=== PATIENT | male | born 1930 | race Caucasian/White ===

== ENCOUNTER 2017-01-23 02:08 | Emergency (ER) | payer MEDICARE ==
[2017-01-23 03:21] LABS: BASOPHILS 0.5 % (0.0-2.0); EOSINOPHILS 17.6 % (0.0-6.0); EOSINOPHILS# 1.5 X 10^3uL (0.0-0.4); HEMATOCRIT 40.8 % (42.0-54.0); HEMOGLOBIN 13.8 g/dL (14.0-18.0); LYMPHOCYTES 21.4 % (20.0-40.0); LYMPHOCYTES# 1.8 X 10^3uL (0.8-3.8); MEAN CELL VOLUME 91.2 fL (80.0-100.0); MEAN CORPUS. HGB CONCENTRATION 33.7 g/dL (32.0-36.0); MEAN CORPUSCULAR HEMOGLOBIN 30.7 pg (29.0-35.0); MEAN PLATELET VOLUME 8.1 fL (7.4-10.4); MONOCYTES 7.4 % (2.0-10.0); MONOCYTES# 0.6 X 10^3uL (0.2-1.0); NEUTROPHILS 53.1 % (54.0-75.0); NEUTROPHILS# 4.7 X 10^3uL (2.6-6.7); PLATELET COUNT 399 X 10^3uL (130-440); RED BLOOD COUNT 4.48 X 10^6uL (4.20-6.10); RED CELL DISTRIBUTION WIDTH 14.4 % (11.5-14.5); WHITE BLOOD COUNT 8.6 X 10^3uL (3.9-10.7)
[2017-01-23 03:27] LABS: ALBUMIN 4.8 g/dL (3.5-5.0); ALKALINE PHOSPHATASE 71 U/L (38-126); ALT 28 U/L (21-72); AST 19 U/L (17-59); BILIRUBIN, DIRECT 0.3 mg/dL (0.0-0.4); BILIRUBIN, TOTAL 0.8 mg/dL (0.2-1.3); BLOOD UREA NITROGEN 21 mg/dL (9-20); CALCIUM 10.6 mg/dL (8.4-10.2); CHLORIDE 108 mmol/L (98-107); CREATININE 1.7 mg/dL (0.7-1.3); GLUCOSE 115 mg/dL (70-100); LIPASE 35 U/L (23-300); POTASSIUM 4.2 mmol/L (3.5-5.1); SODIUM 144 mmol/L (137-145); TOTAL PROTEIN 7.7 g/dL (6.3-8.2)
[2017-01-23] MEDS ORDERED: HYDROmorphone HCL 1 MG/ML SYR ONE (03:32)
[2017-01-23] MEDS ORDERED: ONDANSETRON HCL 4 MG/2 ML VIAL ONE (03:32)
--- NOTE | 2017-01-23 04:32 | CT REPORT ---
HISTORY: Left lower quadrant pain with constipation. COMPARISON: CT from 10/24/2015. TECHNIQUE: This examination was performed using automated exposure control, adjustment of mA or kV according to patient size, and/or use of iterative reconstruction technique. Axial contiguous images of the abdome n and pelvis were obtained without oral or IV contrast, coronal reformat images also performed. FINDINGS: The visualized lung parenchyma and cardiac structures are unremarkable. The 5 mm calculus is noted at the right ureterovesicular junction resulting in mild right hydroureter onephrosis. There is no hepatic mass or intrahepatic biliary dilatation identified on limited noncontrast imaging . The gallbladder is unremarkable, there is no cholelithiasis or pericholecystic fluid. The spleen is unremarkable. There is no pancreatic mass or ductal dilatation. The adrenal glands are unremark able. There is a small hiatal hernia. There is colonic diverticulosis with no evidence of diverticulitis. F luid is noted throughout the ascending and transverse colon. The appendix is normal well-visualized. There is no free intraperitoneal fluid or gas. There is no mesenteric edema or inflammatory process. There is atherosclerosis of the abdominal aorta and branch vessels. A small fat containing left ing uinal hernia is seen. No pathologic adenopathy is identified. There is no bone lesion. IMPRESSION: 1. A 5 mm calculus in the right ureterovesicular junction resulting in mild right hydroureteronephro sis. 2. Colonic diverticulosis with no evidence of diverticulitis. 3. Fluid throughout the ascending and transverse colon. Final Electronic Signature: This report was electronically signed by Torie Ward MD on 01/23/2017 4:30 AM. yury /
--- NOTE | 2017-01-23 06:06 | ER PHYSICIAN DOCUMENTATION ---
Physician Documentation [facility] Name:Dru August Age:86 yrs Sex:Male :1930 Arrival Date:01/23/2017 Time:01:59 BedVT Private MD: Rc Porras Disposition: 01/23 18:46 Chart complete. tl1 Disposition: 01/23/17 03:54 Discharged to Home/Self Care. Impression: Abdominal Cramps, Ureterolithiasis - Renal Colic, Diarrhea. - Condition is Fair. - Discharge Instructions: CONSTIPATION (Adult), DIARRHEA, Unk Cause (Adult) Report Pendg, KIDNEY STONE w/ Colic. - Medical Reconciliation form form. - Follow up: Sae Matt DO; When: 2 - 3 days; Reason: Recheck today's complaints, Continuance of care. - Problem is new. - Symptoms have improved. - Notes: YOUR PAIN MAY BE RELATED TO THE CONSTIPATION AND/OR DIARRHEA. YOU HAVE A LOT OF EOSINOPHILS IN YOUR BLOOD. THIS HAS A VARIETY OF CAUSES AND THIS NEEDS TO BE SORTED OUT BY DR MATT. STOP USING THE MAGNESIUM CITRATE FOR TODAY. RETURN HERE FOR WORSENING PAIN, FEVER, BLOODY STOOLS, PERSISTENT VOMITING OR IF WORSE IN ANY WAY. HPI: 02:02 This 86 yrs old Male presents to ER via Walk In with complaints of tl1 Constipation and abdominal pain. 02:02 The patient presents with abdominal pain. Onset: The symptoms/episode began/occurred tl1 suddenly, 2 hour(s) ago. The symptoms do not radiate. Associated signs and symptoms: Pertinent positives: nausea, Pertinent negatives: blood in stools, diarrhea, dysuria, fever, hematuria, shortness of breath, vomiting. The symptoms are described as crampy. Modifying factors: The symptoms are alleviated by BMs. Severity of pain: At its worst the pain was moderate a 8 / 10 in the emergency department the pain has improved is a 6 / 10. The patient has experienced a previous episode, approximately 4 months ago. Historical: - Allergies: Aspirin; PENICILLINS; Lorazepam; - Home Meds: 1. fluticasone 2. Lantus Sub-Q 3. Metformin Oral 4. Singulair Oral - PMHx: Diabetes - IDDM; GERD; hyperlipidemia; - PSHx: eye; - Tetanus: < 10 years. - Ebola Screening: : Patient denies exposure to infectious person. Patient denies travel to an Ebola-affected area in the 21 days before illness onset. . - Immunization history: Unable to Obtain. - Social history: Smoking status: Patient states was never smoker of tobacco. Patient/guardian denies using alcohol. ROS: 18:31 Abdomen/GI: Positive for abdominal pain, diarrhea, constipation, abdominal cramps, tl1 Negative for nausea, vomiting, hematemesis, black/tarry stool, rectal bleeding. 18:31 : Negative for urinary symptoms, urinary frequency, hematuria, flank pain, burning with urination, foul smelling urine. 18:31 All other systems are negative. Exam: 02:20 Constitutional: This is a well developed, well nourished patient who is awake, alert, tl1 and in no acute distress. Head/Face: Normocephalic, atraumatic. Eyes: Pupils equal round and reactive to light, extra-ocular motions intact. Lids and lashes normal. Conjunctiva and sclera are non-icteric and not injected. Cornea within normal limits. Periorbital areas with no swelling, redness, or edema. ENT: Nares patent. No nasal discharge, no septal abnormalities noted. Tympanic membranes are normal and external auditory canals are clear. Oropharynx with no redness, swelling, or masses, exudates, or evidence of obstruction, uvula midline. Mucous membranes moist. 02:20 Neck: Trachea midline, no thyromegaly or masses palpated, and no cervical tl1 lymphadenopathy. Supple, full range of motion without nuchal rigidity, or vertebral point tenderness. No Meningismus. 02:20 Cardiovascular: Rate: normal, Rhythm: regular, Heart sounds: normal, Edema: is not appreciated, JVD: is not appreciated. 02:20 Respiratory: Respirations: normal, Breath sounds: are normal. 02:20 Abdomen/GI: Inspection: abdomen appears normal, Bowel sounds: active, Palpation: soft, moderate abdominal tenderness, in the right lower quadrant and left lower quadrant, Rectal exam: Prostate: enlarged, rectal tone normal, Stool: brown, guaiac negative, hemorrhoid(s), are not appreciated, mass, is not appreciated, fecal impaction, is not appreciated. 02:20 Back: CVA tenderness, that is mild, is noted on the right. 02:20 Musculoskeletal/extremity: Exam is negative for acute changes. 02:20 Skin: Exam negative for acute changes. 02:20 Neuro: Orientation: is normal, Mentation: is normal, Memory: is normal, Cranial nerves: grossly normal, Motor: moves all fours, Gait: appropriate for age. Vital Signs: 02:02 BP 165 / 97 RA Supine (auto/reg); Pulse 93 RA; Resp 20 S; Temp 97.7(O); Pulse Ox 92% ; em3 Weight 55.34 kg (R); Height 5 ft. 8 in. (172.72 cm) (R); Pain 6/10; 06:04 BP 126 / 70; Pulse 80; Resp 15; Pulse Ox 90% on R/A; Pain 2/10; lb 02:02 Body Mass Index 18.55 (55.34 kg, 172.72 cm) em3 MDM: 02:07 Patient medically screened. tl1 02:29 Patient medically screened. tl1 04:00 Differential diagnosis: appendicitis, bowel obstruction, diverticulitis, GI Bleed, tl1 sympomatic leaking abdominal aortic aneurysm, Mesenteric ischemia or infarction, non-specific abd pain, pancreatitis, Peptic Ulcer Disease, Prostatitis, Pyelonephritis, Ureterolithiasis, urinary tract infection. Data reviewed: vital signs, nurses notes, old medical records, lab test result(s), CBC, electrolytes, hepatic panel, urinalysis, radiologic studies, CT scan, and as a result, I will discharge patient. Counseling: I had a detailed discussion with the patient and/or guardian regarding: the historical points, exam findings, and any diagnostic results supporting the discharge/admit diagnosis, lab results, radiology results, the need for outpatient follow up, with the patient's primary care provider, to return to the emergency department if symptoms worsen or persist or if there are any questions or concerns that arise at home. Medication response: The patient's symptoms have improved, Dilaudid. Response to treatment: the patient's symptoms have resolved after treatment, the patient's pain is gone, and as a result, I will discharge patient. ED course: He initially had multiple episodes of diarrhea after taking mag citrate earlier in the evening. These eventually stopped. When he first arrived he had minimal pain, but he later developed RLQ/pelvic pain that radiated to his testicle. CT showed a 5 mm stone at the UVJ on the right with mild hydronephrosis. The radiologist queried whether this could be chronic. His pain was treated with 0.5 mg of dilaudid with eventual complete resolution of his pain. His diarrhea ceased and after resting for about 3 hours in the ED he preferred and felt well enough to go home. EMELY Julio made sure he was OK to drive prior to his d/c.. 01/23 03:28 Order name: BASIC METABOLIC PANEL; Complete Time: 03:45 EDMS 01/23 03:43 Interpretation: SODIUM 144; POTASSIUM 4.2; CHLORIDE 108; CARBON DIOXIDE 20; GLUCOSE tl1 115; BLOOD UREA NITROGEN 21; CREATININE 1.7; CALCIUM 10.6. 01/23 03:28 Order name: HEPATIC PANEL; Complete Time: 03:45 EDMS 01/23 03:44 Interpretation: Normal. tl1 01/23 03:28 Order name: LIPASE; Complete Time: 03:45 EDMS 01/23 03:44 Interpretation: Normal: LIPASE 35. tl1 01/23 03:30 Order name: CBC AUTO DIF, MDIF/RMOR IF IND; Complete Time: 03:45 EDMS 01/23 03:44 Interpretation: Normal: WHITE BLOOD COUNT 8.6; HEMOGLOBIN 13.8; HEMATOCRIT 40.8; tl1 NEUTROPHILS 53.1; EOSINOPHILS 17.6. 01/23 04:34 Order name: CAT SCAN; ABD/[place] [id number]; Complete Time: 04:54 EDMS 01/23 02:25 Order name: NPO; Complete Time: 03:19 tl1 Dispensed Medications: 02:45 Drug: NS 0.9% 1000 ml; Route: IV; Rate: bolus; Site: left antecubital; lb 06:03 Follow up: IV Status: Infusion discontinued; IV Intake: 600ml lb 03:24 Drug: Zofran 4 mg; Route: IVP; Infused Over: 2 mins; Site: left antecubital; lb 04:26 Follow up: Response: Nausea is decreased lb 03:24 Drug: Dilaudid 0.5 mg; Route: IVP; Site: left antecubital; lb 04:26 Follow up: Response: Pain is decreased lb 06:04 Not Given (Duplicate Order): Zofran 4 mg IVP once over 2 mins lb Signatures: Rc Santos MD MD tl1 Nori Barraza lb
--- NOTE | 2017-01-23 06:06 | ER NURSING DOCUMENTATION ---
Nurse's Notes [facility] Name:Dru August Age:86 yrs Sex:Male :1930 Arrival Date:01/23/2017 Time:01:59 BedSC Private MD: Diagnosis:Abdominal Cramps;Ureterolithiasis - Renal Colic;Diarrhea Presentation: 01/23 02:06 Presenting complaint: Patient states: c/o stomach cramping, small bm's x 1 day. lb Transition of care: Home. Notified ED Physician of Dr. Santos notified. 02:06 Acuity: KATT 4 lb 02:06 Method Of Arrival: Walk In Triage Assessment: 02:10 General: Appears distressed, Behavior is appropriate for age. Pain: Complains of pain lb in abdomen Pain does not radiate. Pain currently is 6 out of 10 on a pain scale. Historical: - Allergies: Aspirin; PENICILLINS; Lorazepam; - Home Meds: 1. fluticasone 2. Lantus Sub-Q 3. Metformin Oral 4. Singulair Oral - PMHx: Diabetes - IDDM; GERD; hyperlipidemia; - PSHx: eye; - Tetanus: < 10 years. - Ebola Screening: : Patient denies exposure to infectious person. Patient denies travel to an Ebola-affected area in the 21 days before illness onset. . - Immunization history: Unable to Obtain. - Social history: Smoking status: Patient states was never smoker of tobacco. Patient/guardian denies using alcohol. Screenin:10 Infectious Disease Risk None. Abuse screen: Denies threats or abuse. Denies injuries lb from another. Nutritional screening: No deficits noted. Assessment: 02:10 See Triage Assessment done by same RN. lb Vital Signs: 02:02 BP 165 / 97 RA Supine (auto/reg); Pulse 93 RA; Resp 20 S; Temp 97.7(O); Pulse Ox 92% ; em3 Weight 55.34 kg (R); Height 5 ft. 8 in. (172.72 cm) (R); Pain 6/10; 06:04 BP 126 / 70; Pulse 80; Resp 15; Pulse Ox 90% on R/A; Pain 2/10; lb 02:02 Body Mass Index 18.55 (55.34 kg, 172.72 cm) em3 ED Course: :59 Patient arrived in ED. em3 02:05 Nori Barraza is Primary Nurse. lb 02:07 Triage completed. lb 02:11 Valuables Remains with patient Patient has correct armband on for positive lb identification. Placed in gown. 02:23 Rc Santos MD is Attending Physician. tl1 02:44 Labs drawn. By management trainer Sent per order to lab. Inserted saline lock: 20 gauge in left em3 antecubital area and blood collected. 03:[address] pm1 03:52 Sae Matt DO is Referral Physician. tl1 Administered Medications: 02:45 Drug: NS 0.9% 1000 ml; Route: IV; Rate: bolus; Site: left antecubital; lb 06:03 Follow up: IV Status: Infusion discontinued; IV Intake: 600ml lb 03:24 Drug: Zofran 4 mg; Route: IVP; Infused Over: 2 mins; Site: left antecubital; lb 04:26 Follow up: Response: Nausea is decreased lb 03:24 Drug: Dilaudid 0.5 mg; Route: IVP; Site: left antecubital; lb 04:26 Follow up: Response: Pain is decreased lb 06:04 Not Given (Duplicate Order): Zofran 4 mg IVP once over 2 mins lb Intake: 06:03 IV: 600ml; Total: 600ml. lb Outcome: 03:54 Discharge ordered by . tl1 06:04 Discharged to home ambulatory. lb 06:04 Condition: stable 06:04 Discharge Assessment: Patient awake, alert and oriented x 3. No cognitive and/or functional deficits noted. Patient verbalized understanding of disposition instructions. 06:04 Instructed on discharge instructions, follow up and referral plans. 06:04 IV D/Den 06:04 Patient left the ED. lb 01/24 10:38 Discharge F/U Call: Unable to reach: no answer amando Signatures: Ale Duran, RN RN Aurelia Araujo pm1 Alphonse Rico em3 Rc Santos MD MD tl1 Nori Barraza lb
== END 2017-01-23 06:06 | disposition home or self-care (01) ==
LOC: ER 02:08
DX: N20.1 Calculus of ureter (principal); N23 Unspecified renal colic; R10.31 Right lower quadrant pain; R10.32 Left lower quadrant pain; R19.7 Diarrhea, unspecified; K59.00 Constipation, unspecified; E11.9 Type 2 diabetes mellitus without complications; Z79.4 Long term (current) use of insulin; Z79.899 Other long term (current) drug therapy
CPT/HCPCS: 74176; 80048; 80076; 83690; 85025; 96361; 96374; 96375; 99284; J1170; J2405

== ENCOUNTER 2017-01-28 13:12 | Emergency (ER) | payer MEDICARE ==
[2017-01-28] MEDS ORDERED: KETOROLAC TROMETHAMINE 30 MG/ML VIAL ONE (13:38)
[2017-01-28] MEDS ORDERED: HYDROmorphone HCL 1 MG/ML SYR ONE (13:38)
[2017-01-28] MEDS ORDERED: ONDANSETRON HCL 4 MG/2 ML VIAL ONE (13:39)
[2017-01-28 14:01] LABS: BASOPHILS 0.3 % (0.0-2.0); EOSINOPHILS 10.1 % (0.0-6.0); HEMATOCRIT 35.2 % (42.0-54.0); HEMOGLOBIN 11.9 g/dL (14.0-18.0); LYMPHOCYTES 15.8 % (20.0-40.0); LYMPHOCYTES# 1.6 X 10^3uL (0.8-3.8); MEAN CELL VOLUME 91.1 fL (80.0-100.0); MEAN CORPUS. HGB CONCENTRATION 33.9 g/dL (32.0-36.0); MEAN CORPUSCULAR HEMOGLOBIN 30.9 pg (29.0-35.0); MEAN PLATELET VOLUME 7.9 fL (7.4-10.4); MONOCYTES 7.3 % (2.0-10.0); MONOCYTES# 0.7 X 10^3uL (0.2-1.0); NEUTROPHILS 66.5 % (54.0-75.0); NEUTROPHILS# 6.6 X 10^3uL (2.6-6.7); PLATELET COUNT 390 X 10^3uL (130-440); RED BLOOD COUNT 3.86 X 10^6uL (4.20-6.10); RED CELL DISTRIBUTION WIDTH 14.1 % (11.5-14.5); WHITE BLOOD COUNT 9.9 X 10^3uL (3.9-10.7)
[2017-01-28 14:07] LABS: A/G RATIO 1.5; ALBUMIN 4.1 g/dL (3.5-5.0); ALKALINE PHOSPHATASE 66 U/L (38-126); ALT 33 U/L (21-72); AST 17 U/L (17-59); BILIRUBIN, TOTAL 0.8 mg/dL (0.2-1.3); BLOOD UREA NITROGEN 16 mg/dL (9-20); CALCIUM 9.3 mg/dL (8.4-10.2); CHLORIDE 106 mmol/L (98-107); CREATININE 1.6 mg/dL (0.7-1.3); MAGNESIUM 2.2 mg/dL (1.6-2.3); POTASSIUM 4.2 mmol/L (3.5-5.1); SODIUM 142 mmol/L (137-145); TOTAL PROTEIN 6.8 g/dL (6.3-8.2)
[2017-01-28 14:12] LABS: GLUCOSE 220 mg/dL (70-100)
--- NOTE | 2017-01-28 14:20 | CT REPORT ---
HISTORY: Bilateral flank pain, history of stones COMPARISON: 01/23/2017 TECHNIQUE: This examination was performed using automated exposure control, adjustment of mA or kV according to patient size, and/or use of iterative reconstruction technique. Axial contiguous images of the abdome n and pelvis were obtained without oral or IV contrast, coronal reformat images also performed. FINDINGS: Previously noted hydronephrosis and hydroureter on the right has resolved. Right UVJ stone is no long er evident. The bladder appears normal. Left kidney appears normal. No stone or hydronephrosis. The left ureter is unremarkable. The lung bases are clear. The visualized portions of the unenhanced liver, spleen, gallbladder, and a drenal glands appear normal. There is moderate fatty infiltration throughout the pancreas. The aorta is normal in size. There is a retroaortic left renal vein. There is no adenopathy, free flu id, or free air. Sigmoid diverticulosis is again evident. No evidence for acute diverticulitis, or bowel obstruction. Small bowel is unremarkable. The appendix is normal. The amount of fluid noted throughout the bowel o n the prior study is less evident. There is no hernia. There is normal alignment to the lumbar spine. IMPRESSION: Previously noted right UVJ stone is no longer evident. Obstructive changes in the right kidney and ur eter have resolved. No new stones or hydronephrosis on either side. The amount of fluid noted throughout the bowel on the prior study is less evident. There remains sigm oid diverticula without evidence of acute diverticulitis. The remainder of the study is unremarkable given the lack of IV and oral contrast. Final Electronic Signature: This report was electronically signed by Logan Doherty MD on 01/28/2017 2 :17 PM. falguni /
--- NOTE | 2017-01-28 16:38 | ER NURSING DOCUMENTATION ---
Nurse's Notes [facility] Name:Dru August Age:86 yrs Sex:Male :1930 Arrival Date:01/28/2017 Time:13:12 Bed4 Private MD:Sae Matt Diagnosis:Pelvic Pain Presentation: 01/28 13:20 Acuity: KATT 3 rs 13:20 Presenting complaint: Patient states: "Kidney stone" pain started this morning. Was in rs this ER recently for the same. Denies f/c. No n/v. 13:20 Method Of Arrival: Private Vehicle rs 13:39 Transition of care: [facility]. rs Triage Assessment: 13:20 General: Appears uncomfortable, well developed, well nourished, well groomed, Behavior rs is cooperative, pleasant. Pain: Complains of pain in Points to RLQ. / suprapubic area. Pain currently is 8 out of 10 on a pain scale. Neuro: Level of Consciousness is awake, alert, Oriented to person, place, time, event. Cardiovascular: No deficits noted. Capillary refill < 3 seconds Pulses are 3+ in left radial artery. Respiratory: No deficits noted. Respiratory effort is even, unlabored, Respiratory pattern is regular, symmetrical. GI: Abdomen is flat, non- distended Bowel sounds present X 4 quads. Abd is soft and non tender X 4 quads. Derm: Skin is pink, warm & dry. Historical: - Home Meds: 1. fluticasone 2. Lantus Sub-Q 3. Metformin Oral 4. Singulair Oral - PMHx: DIABETES - IDDM; GERD; hyperlipidemia; Abdominal Cramps (January 23, 2017); Ureterolithiasis - Renal Colic (January 23, 2017); Diarrhea (January 23, 2017); - PSHx: eye; - Tetanus: unknown. - Ebola Screening: : Patient negative for fever greater than or equal to 101.5 degrees Fahrenheit, and additional compatible Ebola Virus Disease symptoms. Patient denies exposure to infectious person. Patient denies travel to an Ebola-affected area in the 21 days before illness onset. No symptoms or risks identified at this time. . - Immunization history: Unable to Obtain. - Social history: Smoking status: Patient states was never smoker of tobacco. Screenin:25 Infectious Disease Risk None. Abuse screen: Denies threats or abuse. Nutritional rs screening: No deficits noted. Vital Signs: 13:34 BP 149 / 89 (auto/); rs 13:34 Pulse Ox 90% ; rs ED Course: 13:13 Patient arrived in ED. lm3 13:13 Sae Matt DO is Private Physician. lm3 13:20 Rc Santos MD is Attending Physician. tl1 13:20 Notified ED Physician of patient's arrival and chief complaint. Dr. Santos notified. Arm rs band placed on Bed in low position Call Light in Reach HOB Elevated Side rails up x1. 13:25 Door closed. Noise minimized. Lights dimmed. Verbal reassurance given. rs 13:30 Inserted peripheral IV: 20 gauge in left forearm and blood collected. rs 13:39 Alice Kaminski RN is Primary Nurse. rs 13:43 Triage completed. rs 13:[address] pm1 14:06 Patient moved back from [address]. pm1 15:42 Sae Matt DO is Referral Physician. tl1 Administered Medications: 13:30 Drug: Zofran 4 mg; Route: IVP; Rate: 2 mg/min; Infused Over: 2 mins; Site: left forearm;rs 13:33 Drug: Toradol 15 mg; Route: IVP; Rate: 7.5 mg/min; Infused Over: 2 mins; Site: left rs forearm; 13:35 Drug: Dilaudid 0.5 mg; Route: IVP; Rate: 0.25 mg/min; Infused Over: 2 mins; Site: left rs forearm; Outcome: 15:45 Discharge ordered by . tl1 16:38 Patient left the ED. lpr Signatures: Alice Kaminski RN RN rs Judith Encarnacion RN RN lpr McBride, Philisha pm1 Rc Santos MD MD tl1 Mitzi Pulido lm3
--- NOTE | 2017-01-28 16:38 | ER PHYSICIAN DOCUMENTATION ---
Physician Documentation [facility] Name:Dru August Age:86 yrs Sex:Male :1930 Arrival Date:01/28/2017 Time:13:12 Bed4 Private MD:Sae Matt ED, Tom Disposition: 01/28 17:00 Chart complete. tl1 Disposition: 01/28/17 15:45 Discharged to [facility]. Impression: Pelvic Pain. - Condition is Good. - Discharge Instructions: PELVIC PAIN, Unknown Cause. - Medical Reconciliation form form. - Follow up: Sae Matt DO; When: 4- 6 days; Reason: Recheck today's complaints, Continuance of care. - Problem is new. - Symptoms are resolved. HPI: 13:21 This 86 yrs old Male presents to ER with complaints of PELVIC PAIN; Possible tl1 Kidney Stone. 13:25 The patient presents with Pelvic pain. Onset: The symptom(s)/episode began/occurred tl1 suddenly, 3 hour(s) ago. Modifying factors: The symptoms are alleviated by nothing, the symptoms are aggravated by nothing. Associated signs and symptoms: Pertinent positives: nausea, Pertinent negatives: constipation, diarrhea, vomiting. Severity of symptoms: At their worst the symptoms were severe, in the emergency department the symptoms have improved. The patient has experienced similar episodes in the past. The patient has been recently seen at the [facility] Emergency Department, last week. Initially he had difficulty describing his pain. After his pain was treated and he was feeling better, he described the pain as similar to that which he has had many times in the past and which has been ascribed to his PMR, somehow in the past. He reported that this has always been brief and self limited.. Historical: - Home Meds: 1. fluticasone 2. Lantus Sub-Q 3. Metformin Oral 4. Singulair Oral - PMHx: DIABETES - IDDM; GERD; hyperlipidemia; Abdominal Cramps (January 23, 2017); Ureterolithiasis - Renal Colic (January 23, 2017); Diarrhea (January 23, 2017); - PSHx: eye; - Tetanus: unknown. - Ebola Screening: : Patient negative for fever greater than or equal to 101.5 degrees Fahrenheit, and additional compatible Ebola Virus Disease symptoms. Patient denies exposure to infectious person. Patient denies travel to an Ebola-affected area in the 21 days before illness onset. No symptoms or risks identified at this time. . - Immunization history: Unable to Obtain. - Social history: Smoking status: Patient states was never smoker of tobacco. ROS: 13:25 Constitutional: Positive for malaise, Negative for chills, fever, weight loss. tl1 13:25 Cardiovascular: Negative for chest pain. 13:25 Respiratory: Negative for cough, shortness of breath, wheezing. 13:25 Abdomen/GI: Positive for abdominal pain, nausea, abdominal cramps, of the suprapubic area, Negative for vomiting, diarrhea, constipation. 13:25 : Negative for urinary symptoms, difficulty urinating. 13:25 Neuro: Negative for dizziness, headache. Exam: 13:25 Constitutional: The patient appears alert, awake, well developed, well groomed, well tl1 nourished, frail, in obvious distress, moderately distressed, in obvious pain, restless, uncomfortable. 13:25 Head/face: Exam is negative for acute changes. 13:25 Eyes: Extraocular movements: intact throughout, Sclera: icterus, is not appreciated. 13:25 Neck: ROM/movement: is normal. 13:25 Cardiovascular: Rate: normal, Rhythm: regular, Heart sounds: normal, Edema: is not appreciated, JVD: is not appreciated. 13:25 Respiratory: Respirations: normal, Breath sounds: are normal. 13:25 Abdomen/GI: Inspection: abdomen appears normal, Bowel sounds: active, Palpation: soft, mild abdominal tenderness, in the right lower quadrant and left lower quadrant. 13:25 : CVA tenderness, is absent, Bladder: distension, is not appreciated, tenderness, that is mild. 13:25 Skin: Exam negative for acute changes. 13:25 Neuro: Exam negative for acute changes. Vital Signs: 13:34 BP 149 / 89 (auto/); rs 13:34 Pulse Ox 90% ; rs MDM: 13:20 Patient medically screened. tl1 16:00 Differential diagnosis: nonspecific abdominal pain, appendicitis, UTI, urinary tl1 retention, prostatitis, ischemic bowel, obstruction, meckle's diverticulum, diverticulitis, mesenteric adenitis, epiploic appendagitis. AAA. Differential diagnosis: renal colic. Data reviewed: vital signs, nurses notes, old medical records, lab test result(s), radiologic studies, and as a result, I will admit patient. Counseling: I had a detailed discussion with the patient and/or guardian regarding: the historical points, exam findings, and any diagnostic results supporting the discharge/admit diagnosis, lab results, radiology results, the need for outpatient follow up, to return to the emergency department if symptoms worsen or persist or if there are any questions or concerns that arise at home. Response to treatment: the patient's symptoms have resolved after treatment, the patient's pain is gone, the patient's condition has returned to base line, the patient is now symptom free, Repeat agdominal exam showed active bowel sounds and was completely non tender.. 01/28 14:10 Order name: CBC AUTO DIF, MDIF/RMOR IF IND; Complete Time: 15:38 EDMS 01/28 15:36 Interpretation: WHITE BLOOD COUNT 9.9; HEMOGLOBIN 11.9; HEMATOCRIT 35.2; PLATELET COUNT tl1 390; EOSINOPHILS 10.1. 01/28 14:13 Order name: COMPREHENSIVE METABOLIC PANEL; Complete Time: 15:38 EDMS 01/28 15:37 Interpretation: Normal Except: GLUCOSE 220; CREATININE 1.6. tl1 01/28 14:13 Order name: MAGNESIUM; Complete Time: 15:38 EDMS 01/28 15:37 Interpretation: Normal: MAGNESIUM 2.2. tl1 01/28 14:07 Order name: CAT SCAN; ABD/[place] [id number]; Complete Time: 07:26 EDMS 01/29 07:26 Interpretation: NAD. SEE REPORT. tl1 01/28 14:07 Order name: CAT SCAN ABD/[place] [id number]; Complete Time: 15:38 EDMS 01/28 14:22 Order name: CAT SCAN; ABD/[place] [id number]; Complete Time: 15:38 EDMS Dispensed Medications: 13:30 Drug: Zofran 4 mg; Route: IVP; Rate: 2 mg/min; Infused Over: 2 mins; Site: left forearm;rs 13:33 Drug: Toradol 15 mg; Route: IVP; Rate: 7.5 mg/min; Infused Over: 2 mins; Site: left rs forearm; 13:35 Drug: Dilaudid 0.5 mg; Route: IVP; Rate: 0.25 mg/min; Infused Over: 2 mins; Site: left rs forearm; Signatures: Alice Kaminski RN RN rs Judith Encarnacion RN RN Rc Jones MD MD tl1
== END 2017-01-28 16:38 ==
LOC: ER 13:12
DX: R10.31 Right lower quadrant pain (principal); R10.32 Left lower quadrant pain; R11.0 Nausea; R53.81 Other malaise; Z87.442 Personal history of urinary calculi; M35.3 Polymyalgia rheumatica; E11.65 Type 2 diabetes mellitus with hyperglycemia; Z79.899 Other long term (current) drug therapy; Z79.4 Long term (current) use of insulin
CPT/HCPCS: 74176; 80053; 83735; 85025; 96374; 96375; 99284; J1170; J1885; J2405

== ENCOUNTER 2017-01-30 09:49 | Observation (INO) | payer MEDICARE ==
--- NOTE | 2017-01-30 10:09 | CT REPORT ---
HISTORY: Stroke alert. COMPARISON: None. TECHNIQUE: Unenhanced axial CT of the head. Dose reduction technique was utilized. FINDINGS: The examination is limited due to motion artifact. The ventricles, sulci, and cisterns are symmetric, but mildly prominent compatible with age related a trophy. There is mild low attenuation in the periventricular white matter which is nonspecific, but likely due to small vessel ischemic disease. The hood-white differentiation appears preserved with no evidence of acute infarct. There is no evidence of acute intercranial hemorrhage. There is a punctat e basal ganglia calcification on the left side. There is no mass lesion or midline shift. The bony calvaria appears intact. There are bilateral cataract replacements. There is opacification of the l eft sphenoid sinus. Otherwise, the visualized paranasal sinuses and mastoid air cells are clear. Ther e is moderate atherosclerosis involving the cavernous internal carotid and mild atherosclerosis invol ving the distal vertebral arteries. IMPRESSION: 1. No acute intracranial abnormality. 2. Mild age-related atrophy. 3. Mild periventricular white matter small vessel ischemic disease. 4. Left sphenoid sinusitis. Critical results were communicated to SD DIAZ MD at 01/30/2017 10:05 AM. Final Electronic Signature: This report was electronically signed by Logan Mora MD on 01/30/2017 1 0:06 AM. pavan /
[2017-01-30 10:11] LABS: BASOPHILS 0.5 % (0.0-2.0); EOSINOPHILS 12.2 % (0.0-6.0); EOSINOPHILS# 0.9 X 10^3uL (0.0-0.4); HEMATOCRIT 36.2 % (42.0-54.0); HEMOGLOBIN 12.1 g/dL (14.0-18.0); LYMPHOCYTES 21.3 % (20.0-40.0); LYMPHOCYTES# 1.6 X 10^3uL (0.8-3.8); MEAN CELL VOLUME 91.4 fL (80.0-100.0); MEAN CORPUS. HGB CONCENTRATION 33.3 g/dL (32.0-36.0); MEAN CORPUSCULAR HEMOGLOBIN 30.4 pg (29.0-35.0); MEAN PLATELET VOLUME 7.7 fL (7.4-10.4); MONOCYTES 10.5 % (2.0-10.0); MONOCYTES# 0.8 X 10^3uL (0.2-1.0); NEUTROPHILS 55.5 % (54.0-75.0); NEUTROPHILS# 4.3 X 10^3uL (2.6-6.7); PLATELET COUNT 361 X 10^3uL (130-440); RED BLOOD COUNT 3.97 X 10^6uL (4.20-6.10); WHITE BLOOD COUNT 7.6 X 10^3uL (3.9-10.7)
[2017-01-30 10:21] LABS: BLOOD UREA NITROGEN 14 mg/dL (9-20); CALCIUM 9.2 mg/dL (8.4-10.2); CHLORIDE 104 mmol/L (98-107); CREATININE 1.9 mg/dL (0.7-1.3); GLUCOSE 134 mg/dL (70-100); POTASSIUM 4.2 mmol/L (3.5-5.1); SODIUM 140 mmol/L (137-145)
[2017-01-30] MEDS ORDERED: NALOXONE HCL 0.4 MG/ML VIAL ONE ×2 (10:21→10:35)
[2017-01-30 10:23] LABS: INR 1.2
[2017-01-30] MEDS ORDERED: HOME MEDICATION LIST NEEDED 1 EA EACH MC ONE (12:05)
[2017-01-30] MEDS ORDERED: MAG-AL PLUS XS SUSP 30 ML UDC PO PRN (12:05)
[2017-01-30] MEDS ORDERED: POLYETHYLENE GLYCOL 3350 17 GM POWD.PACK PO PRN (12:05)
[2017-01-30] MEDS ORDERED: DEXTROSE 50% WATER 25 GM/50 ML SYR IV PRN (12:31)
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
[2017-01-30] MEDS: ACETAMINOPHEN 325 MG TABLET PO PRN (14:20)
[2017-01-30 16:37] LABS: URINE APPEARANCE CLEAR; URINE COLOR YELLOW; URINE GLUCOSE NORMAL (NEGATIVE); URINE LEUKOCYTE ESTERASE NEGATIVE (NEGATIVE); URINE NITRITE NEGATIVE (NEGATIVE); URINE PH 7.5 (5-7); URINE PROTEIN NEGATIVE (NEG - TRACE)
[2017-01-30 16:38] LABS: URINE BILIRUBIN NEGATIVE (NEGATIVE); URINE BLOOD NEGATIVE (NEGATIVE); URINE KETONE 10mg/dL (1+) (NEGATIVE); URINE UROBILINOGEN NORMAL (NEG-1mg/dL)
[2017-01-30] MEDS: INSULIN LISPRO 100 UNIT/ML ML SUBCUT SCH ×2 (18:08→20:55)
[2017-01-30] MEDS: ALBUTEROL HFA 1 INH INHALER INHALATION PRN (18:59)
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
[2017-01-31] MEDS: LACTATED RINGERS 1,000 ML IV SCH ×2 (02:57→16:26)
[2017-01-31] MEDS: ALBUTEROL HFA 1 INH INHALER INHALATION PRN (03:55)
[2017-01-31] MEDS: ACETAMINOPHEN 325 MG TABLET PO PRN (05:32)
[2017-01-31] MEDS: INSULIN LISPRO 100 UNIT/ML ML SUBCUT SCH ×4 (06:28→21:16)
[2017-01-31 06:42] LABS: A/G RATIO 1.3; ALBUMIN 3.8 g/dL (3.5-5.0); ALKALINE PHOSPHATASE 76 U/L (38-126); ALT 33 U/L (21-72); AST 22 U/L (17-59); BILIRUBIN, TOTAL 0.8 mg/dL (0.2-1.3); BLOOD UREA NITROGEN 12 mg/dL (9-20); CALCIUM 9.1 mg/dL (8.4-10.2); CHLORIDE 101 mmol/L (98-107); CREATININE 1.7 mg/dL (0.7-1.3); GLUCOSE 81 mg/dL (70-100); POTASSIUM 4.3 mmol/L (3.5-5.1); SODIUM 136 mmol/L (137-145); TOTAL PROTEIN 6.7 g/dL (6.3-8.2)
[2017-01-31] MEDS ORDERED: FEXOFENADINE HCL 180 MG TABLET PO PRN (07:59)
[2017-01-31] MEDS ORDERED: MAGNESIUM HYDROXIDE 30 ML UDC PO PRN (07:59)
[2017-01-31] MEDS ORDERED: ACETAMINOPHEN 325 MG TABLET PO PRN (07:59)
[2017-01-31] MEDS ORDERED: ALBUTEROL HFA 1 INH INHALER INHALATION PRN (07:59)
[2017-01-31] MEDS ORDERED: FLUTICASONE NASAL 120 SPRAY BTL NASAL PRN (07:59)
[2017-01-31] MEDS ORDERED: clonazePAM 0.5 MG TABLET PO PRN (07:59)
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
[2017-01-31] MEDS ORDERED: INHALER, ASSIST DEVICES 1 PKT EACH ONE (08:30)
[2017-01-31] MEDS: FINASTERIDE 5 MG TABLET PO SCH (08:54)
[2017-01-31] MEDS ORDERED: FLUTICASONE HFA 44 MCG 120 INH INH INHALATION SCH (09:00)
[2017-01-31] MEDS: predniSONE 5 MG TABLET PO SCH (09:00)
[2017-01-31] MEDS ORDERED: metFORMIN 500 MG TABLET PO SCH (09:00)
[2017-01-31] MEDS: BUDESONIDE 0.5 MG/2 ML NEB INHALATION SCH ×2 (09:16→20:43)
[2017-01-31] MEDS ORDERED: O2 HUMIDIFIER 650 ML BOTTLE INHALATION ONE (09:28)
[2017-01-31] MEDS: IPRATROPIUM/ALBUTEROL 0.5/3 MG 3 ML AMPUL.NEB INHALATION PRN (13:53)
[2017-01-31] MEDS ORDERED: SIMVASTATIN 20 MG TABLET PO SCH (21:00)
[2017-01-31] MEDS ORDERED: TAMSULOSIN HCL 0.4 MG CAPSULE PO SCH (21:00)
[2017-01-31] MEDS ORDERED: INSULIN GLARGINE,HUM.REC.ANLOG 100 UNITS/ML ML SUBCUT SCH (21:00)
[2017-01-31] MEDS ORDERED: MONTELUKAST SODIUM 10 MG TABLET PO SCH (21:00)
[2017-02-01] MEDS: LACTATED RINGERS 1,000 ML IV SCH (04:00)
[2017-02-01 06:29] VITALS: BP 156/91; PULSE 94; RESP 16; TEMP 97.8
[2017-02-01] MEDS ORDERED: FLUOCINONIDE TOPICAL PRN (07:31)
[2017-02-01] MEDS ORDERED: EMOLLIENT BASE TOPICAL PRN (07:31)
[2017-02-01] MEDS ORDERED: ALBUTEROL 0.083% 2.5 MG/3 ML VIAL.NEB INHALATION PRN (07:31)
[2017-02-01] MEDS ORDERED: [UNRECOGNIZED DRUG - OTHER] TOPICAL PRN (07:31)
[2017-02-01] MEDS ORDERED: NON-FORMULARY MEDICATION (Ketotifen Fumarate [Zaditor] 1 DROP) EACHEYE PRN (07:31)
[2017-02-01] MEDS ORDERED: IPRATROPIUM BROMIDE 0.5 MG/2.5 ML NEB NEB PRN (07:31)
[2017-02-01] MEDS: INSULIN LISPRO 100 UNIT/ML ML SUBCUT SCH (07:53)
[2017-02-01 07:57] VITALS: O2SAT 93
[2017-02-01] MEDS: FINASTERIDE 5 MG TABLET PO SCH (08:11)
[2017-02-01] MEDS: predniSONE 5 MG TABLET PO SCH (08:11)
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
[2017-02-01] MEDS: IPRATROPIUM/ALBUTEROL 0.5/3 MG 3 ML AMPUL.NEB INHALATION PRN (08:24)
[2017-02-01] MEDS: BUDESONIDE 0.5 MG/2 ML NEB INHALATION SCH (08:26)
[2017-02-01] MEDS ORDERED: NON-FORMULARY MEDICATION (Omeprazole [Omeprazole] 20 MG) PO SCH (17:00)
[2017-02-01] MEDS ORDERED: PANTOPRAZOLE 40 MG TABLET PO SCH (17:00)
== END 2017-02-01 10:00 | disposition home or self-care (01) ==
LOC: ER 09:49 → IN 13:38
PROVIDERS: ADMIT Family Medicine; ATTEND Family Medicine
DX: J45.901 Unspecified asthma with (acute) exacerbation (principal); E11.649 Type 2 diabetes mellitus with hypoglycemia without coma; R41.82 Altered mental status, unspecified; M35.3 Polymyalgia rheumatica; R55 Syncope and collapse; Z79.4 Long term (current) use of insulin; H91.8X3 Other specified hearing loss, bilateral; G47.00 Insomnia, unspecified; E78.5 Hyperlipidemia, unspecified; J30.2 Other seasonal allergic rhinitis; Z79.899 Other long term (current) drug therapy; Z74.3 Need for continuous supervision
CPT/HCPCS: 36415; 70450; 80048; 80053; 80305; 81003; 85025; 85610; 93005; 93041; 94640; 94664; 96361; 96372; 96374; 99291; 99292; A0425; A0427; E0555; G0378; J1815; J7120; J7512; J7620

== ENCOUNTER 2017-02-08 18:20 | Inpatient (IN) | payer MEDICARE ==
[2017-02-08 18:52] LABS: BASOPHILS 0.1 % (0.0-2.0); EOSINOPHILS 2.9 % (0.0-6.0); EOSINOPHILS# 0.7 X 10^3uL (0.0-0.4); HEMATOCRIT 40.8 % (42.0-54.0); HEMOGLOBIN 13.9 g/dL (14.0-18.0); LYMPHOCYTES 6.1 % (20.0-40.0); LYMPHOCYTES# 1.5 X 10^3uL (0.8-3.8); MEAN CELL VOLUME 90.6 fL (80.0-100.0); MEAN CORPUS. HGB CONCENTRATION 33.9 g/dL (32.0-36.0); MEAN CORPUSCULAR HEMOGLOBIN 30.8 pg (29.0-35.0); MEAN PLATELET VOLUME 8.2 fL (7.4-10.4); MONOCYTES 3.8 % (2.0-10.0); NEUTROPHILS# 22.1 X 10^3uL (2.6-6.7); PLATELET COUNT 429 X 10^3uL (130-440); RED BLOOD COUNT 4.51 X 10^6uL (4.20-6.10); RED CELL DISTRIBUTION WIDTH 13.3 % (11.5-14.5); WHITE BLOOD COUNT 25.3 X 10^3uL (3.9-10.7)
[2017-02-08 18:59] LABS: ALBUMIN 4.4 g/dL (3.5-5.0); ALKALINE PHOSPHATASE 89 U/L (38-126); ALT 52 U/L (21-72); AST 24 U/L (17-59); BILIRUBIN, DIRECT 0.2 mg/dL (0.0-0.4); BILIRUBIN, TOTAL 0.8 mg/dL (0.2-1.3); BLOOD UREA NITROGEN 40 mg/dL (9-20); CALCIUM 9.4 mg/dL (8.4-10.2); CHLORIDE 97 mmol/L (98-107); CREATININE 2.1 mg/dL (0.7-1.3); LIPASE 103 U/L (23-300); POTASSIUM 4.9 mmol/L (3.5-5.1); SODIUM 135 mmol/L (137-145); TOTAL PROTEIN 7.4 g/dL (6.3-8.2)
[2017-02-08 19:00] LABS: GLUCOSE 462 mg/dL (70-100)
[2017-02-08] MEDS ORDERED: ACETAMINOPHEN 325 MG TABLET PO ONE (19:02)
[2017-02-08 19:07] LABS: BETA HYDROXYBUTYRATE 0.27 mmol/L (<0.40)
[2017-02-08 19:20] LABS: NEUTROPHILS 87.1 % (54.0-75.0)
[2017-02-08] MEDS ORDERED: INSULIN REGULAR HUMAN 100 UNITS/ML ML ONE (21:05)
[2017-02-08] MEDS ORDERED: cefTRIAXone SODIUM 1,000 MG/10 ML VIAL ONE (21:18)
[2017-02-08] MEDS ORDERED: AZITHROMYCIN IV ONE (21:19)
[2017-02-08] MEDS ORDERED: NORMAL SALINE 100 ML IV ONE (21:19)
[2017-02-08] MEDS ORDERED: NORMAL SALINE 250 ML IV ONE (21:24)
[2017-02-08] MEDS ORDERED: ZOLPIDEM TARTRATE 5 MG TABLET PO PRN (21:31)
[2017-02-08] MEDS ORDERED: HOME MEDICATION LIST NEEDED 1 EA EACH MISC ONE (21:31)
[2017-02-08] MEDS ORDERED: DEXTROSE 50% WATER 25 GM/50 ML SYR IV PRN (21:36)
[2017-02-08] MEDS ORDERED: NON-FORMULARY MEDICATION (Cetirizine Hcl [Cetirizine Hcl] 10 MG) PO PRN (22:05)
[2017-02-08] MEDS ORDERED: MAGNESIUM HYDROXIDE 30 ML UDC PO PRN (22:05)
[2017-02-08] MEDS ORDERED: ACETAMINOPHEN 325 MG TABLET PO PRN (22:05)
[2017-02-08] MEDS ORDERED: FLUTICASONE NASAL 120 SPRAY BTL NASAL PRN (22:05)
--- NOTE | 2017-02-08 22:26 | ER PHYSICIAN DOCUMENTATION ---
Physician Documentation [facility] Name:Dru August Age:86 yrs Sex:Male :1930 Arrival Date:02/08/2017 Time:18:20 BedTrauma-A Private MD: Rc Porras Disposition: 02/08/17 20:45 Admit ordered for Alicia De Los Santos. Preliminary diagnosis are Fever, Tachycardia Unspecified, Leukocytosis- Unspecified, Chronic Renal Failure/Insufficiency, Diabetes with Hyperglycemia. - Bed requested for Medical/Surgical. - Condition is Fair. - Problem is new. - Symptoms have improved. 23 HR OBS No HPI: 02/08 18:54 This 86 yrs old Male presents to ER with complaints of General Weakness. sc 18:54 weak, not eating, not on insulin, didn't start prednisone (unk indication) or metformin sc yet. Onset: The symptom(s)/episode began/occurred at an unknown time. Severity of symptoms: At their worst the symptoms were moderate. The patient has experienced a previous episode, last week, cough, and possible cough med overdose. The patient has been recently seen by a physician: the patient's primary care provider, Dr. Matt this afternoon. Historical: - Allergies: Aspirin; Lorazepam; PENICILLINS; - Home Meds: 1. Acetaminophen Oral 2. Pulmicort Inhl 3. ceramides 1,3,6-11 top 4. cetirizine oral 5. Clonazepam Oral 6. finasteride oral 7. Fluocinolone Acetonide Topical 8. Flonase Nasal 9. duoneb 10. zaditor 11. Mag Citrate Oral 12. Metformin Oral 13. singulair 14. Mycostatin Oral 15. Prilosec Oral 16. Prednisone Oral 17. Zocor Oral 18. Flomax Oral 19. Kenalog top Topical - PMHx: Diabetes - IDDM; diabetic neuropathy; polymyalgia rheumatica; mylagia; - PSHx: Unable to obtain; - Tetanus: unknown. - Immunization history: Pneumococcal vaccine status is unknown. - Ebola Screening: : Unable to complete screening because patient does not understand, Patient negative for fever greater than or equal to 101.5 degrees Fahrenheit, and additional compatible Ebola Virus Disease symptoms. Patient denies exposure to infectious person. Patient denies travel to an Ebola-affected area in the 21 days before illness onset. No symptoms or risks identified at this time. . - Social history: Smoking status: Patient states was never smoker of tobacco. Patient/guardian denies using alcohol. ROS: 18:56 Eyes: Negative for injury, pain, redness, and discharge. sc ENT: Negative for injury, pain, and discharge. Neck: Negative for injury, pain, and swelling. Back: Negative for injury and pain. MS/Extremity: Negative for injury and deformity. 18:56 Skin: Negative for injury, rash, and discoloration. sc 18:56 Constitutional: Positive for body aches, fatigue, malaise, poor PO intake. 18:56 Cardiovascular: Negative for chest pain, edema. 18:56 Respiratory: Positive for cough. 18:56 Abdomen/GI: Negative for abdominal pain, vomiting, diarrhea, constipation. 18:56 Neuro: Positive for weakness. Exam: Head/Face: Normocephalic, atraumatic. Eyes: Pupils equal round and reactive to light, extra-ocular motions intact. Lids and lashes normal. Conjunctiva and sclera are non-icteric and not injected. Cornea within normal limits. Periorbital areas with no swelling, redness, or edema. ENT: Nares patent. No nasal discharge, no septal abnormalities noted. Tympanic membranes are normal and external auditory canals are clear. Oropharynx with no redness, swelling, or masses, exudates, or evidence of obstruction, uvula midline. Mucous membranes moist. Neck: Trachea midline, no thyromegaly or masses palpated, and no cervical lymphadenopathy. Supple, full range of motion without nuchal rigidity, or vertebral point tenderness. No meningismus. Chest/axilla: Normal chest wall appearance and motion. Nontender with no deformity. No lesions are appreciated. Back: No spinal tenderness. No costovertebral tenderness. Full range of motion. 18:56 Skin: Warm, dry with normal turgor. Normal color with no rashes, no lesions, and no sc evidence of cellulitis. 18:56 Constitutional: The patient appears awake, febrile, frail, lethargic, listless. 18:56 Cardiovascular: Rate: normal, Rhythm: regular. 18:56 Respiratory: the patient does not display signs of respiratory distress, Respirations: tachypnea, that is mild, Breath sounds: bronchial sounds, that are mild, are scattered. 18:56 Abdomen/GI: Inspection: abdomen appears normal, Bowel sounds: normal, Palpation: abdomen is soft and non-tender. 18:56 Neuro: Orientation: to person, Mentation: slow to respond, confused. Vital Signs: 18:30 BP 157 / 83 (auto/); Pulse 110; Resp 14; Temp 100.2(TE); Pulse Ox 96% on 2 lpm NC; sj Weight 55.34 kg; Height 5 ft. 8 in. (172.72 cm); Pain 3/10; 19:00 BP 124 / 88; Pulse 105; Resp 22; Pulse Ox 94% on 2 lpm NC; sj 19:30 BP 118 / 89; Pulse 103; Resp 25; Pulse Ox 93% on 2 lpm NC; sj 20:15 BP 140 / 78; Pulse 98 MON; Resp 21; Temp 101.2(TE); Pulse Ox 94% ; sj 21:00 BP 119 / 70; Pulse 96 MON; Resp 25; Pulse Ox 91% ; sj 21:30 BP 138 / 82; Pulse 98 MON; Resp 28; Pulse Ox 92% ; sj 18:30 Body Mass Index 18.55 (55.34 kg, 172.72 cm) MDM: 18:23 Patient medically screened. dc 20:45 Data reviewed: vital signs, nurses notes, old medical records, lab test result(s), tl1 finger stick glucose, CBC, electrolytes, hepatic panel, radiologic studies, plain films, and as a result, I will admit patient. Test interpretation: by ED physician or midlevel provider: plain radiologic studies. Counseling: I had a detailed discussion with the patient and/or guardian regarding: the historical points, exam findings, and any diagnostic results supporting the discharge/admit diagnosis, lab results, radiology results, the need for further work-up and treatment in the hospital. Medication response: The patient's symptoms have improved. Response to treatment: the patient's symptoms have mildly improved after treatment, and as a result, I will admit patient. Physician consultation: Alicia De Los Santos MD was called at 20:10, was contacted at 20:15, regarding patient's condition, need to come to ED to see patient, and will see patient in ED, shortly. 20:46 ED course: HR came down with IVNS. Regular insulin administered. Cultures were sent. We tl1 were unable to get a U/A. Discussed his care with Dr De Los Santos, covering for Dr Matt, and she will be in shortly, to admit, for R/O, treatment of possible sepsis.. 02/08 19:02 Order name: LIPASE; Complete Time: 20:50 EDSC 02/08 19:30 Order name: LACTATE; Complete Time: 20:50 [facility] 02/08 20:16 Order name: SPUTUM CULTURE AND GRAM STAIN; Complete Time: 20:50 [facility] 02/09 01:11 Order name: UA W/O MICRO - OTIS, CUL IF IND EDSC 02/09 06:00 Order name: CBC AUTO DIF, MDIF/RMOR IF IND EDSC 02/09 10:29 Order name: SPUTUM CULTURE AND GRAM STAIN EDSC 02/09 10:32 Order name: GRAM STAIN EDSC 02/09 19:18 Order name: BLOOD CULTURE EDSC 02/09 19:18 Order name: BLOOD CULTURE [facility] 02/09 19:43 Order name: C DIFFICILE BY PCR EDSC 02/10 07:41 Order name: STOOL CULTURE PANEL EDSC 02/10 09:49 Order name: CBC AUTO DIF, MDIF/RMOR IF IND EDSC 02/10 09:57 Order name: ERYTHROCYTE SEDIMENTATION RATE EDSC 02/10 10:12 Order name: BASIC METABOLIC PANEL EDSC 02/10 10:12 Order name: C-REACTIVE PROTEIN EDSC 02/09 10:17 Order name: CHEST; SINGLE VIEW [id number] EDSC 02/09 12:58 Order name: CAT SCAN; ABDOMEN W/ABDOULAYE [id number] EDSC 02/08 18:24 Order name: I & O; Complete Time: 18:53 dc 02/08 18:24 Order name: NPO; Complete Time: 18:53 dc 02/08 18:24 Order name: Oxygen; Complete Time: 18:53 dc 02/08 18:24 Order name: Place Patient On Monitor; Complete Time: 18:53 dc 02/08 18:24 Order name: Pulse Ox Continuous; Complete Time: 18:53 dc 02/08 18:24 Order name: Iv Saline Lock; Complete Time: 18:53 sc Dispensed Medications: 18:24 CANCELLED (Other Intervention Used): NS 0.9% 2000 ml IV at bolus once sc 18:30 Drug: NS 0.9% 1000 ml; Route: IV; Rate: 250 ml/hr; Site: left antecubital; 20:18 Follow up: IV Status: Infusion continued; IV Intake: 1000ml 19:10 Drug: Tylenol 650 mg; Route: PO; 20:15 Drug: NS 0.9% 1000 ml; Route: IV; Rate: 500 ml/hr; Site: right antecubital; 22:23 Follow up: IV Status: Completed infusion; IV Intake: 1000ml 20:50 Drug: Insulin Regular Human 5 units; Route: IVP; Site: left antecubital; 21:21 Dru grams of (cefTRIAXone 1 grams, NS 0.9% 100 ml); Route: IVPB; Infused Over: 30 sj mins; Site: right antecubital; 22:23 Follow up: IV Status: Completed infusion; IV Intake: 120ml Point of Care Testing: Blood Glucose: 20:50 Blood Glucose: 369 mg/dL; mv Urine Dip: 22:00 pH: 6.0; ; Specific [place]: 1.015; Ketones: Negative; Glucose: Positive; Protein: sj Negative; Leukocytes: Negative; Nitrite: Negative ; Blood: Negative; Bilirubin: Negative ; Urobilinogen: Normal Ranges: Critical Glucose Levels:Adult <50 mg/dl or >400 mg/dl <40 mg/dl or >180 mg/dl Signatures: Dispatcher [employer] EDKali Dowling MD MD sc Leigh, Tom, MD MD tl1 Debra Gleason
--- NOTE | 2017-02-08 22:26 | ER NURSING DOCUMENTATION ---
Nurse's Notes [facility] Name:Dru August Age:86 yrs Sex:Male :1930 Arrival Date:02/08/2017 Time:18:20 BedTrauma-A Private MD: Diagnosis:Fever;Tachycardia Unspecified;Leukocytosis- Unspecified;Chronic Renal Failure/Insufficiency;Diabetes with Hyperglycemia Presentation: 02/08 18:25 Acuity: KATT 2 sc1 19:14 Presenting complaint: EMS states: found by clinic employee who checked on patient after sj clinic visit today and called EMS. Patient weak, confused, stumbling, incoherent slurred speech, generalized pain everywhere. Not eating. Seen in Dr. Matt's office with BG in 360's. Flu test there negative. Rx's for metformin and prednisone but scripts not filled. EMS BG 440. RA sat 86%, placed on 2L/nc. Transition of care: Home. 19:14 Method Of Arrival: EMS: 410 sj Triage Assessment: 19:25 General: Appears uncomfortable, Behavior is cooperative, listless, quiet. Pain: sj Complains of pain in generalized. Neuro: Level of Consciousness is lethargic, listless, obeys commands, Oriented to person, place, Oral Hygienist are weak bilaterally Moves all extremities. Facial symmetry appears normal. Cardiovascular: Capillary refill < 3 seconds Heart tones S1 S2. Respiratory: Breath sounds are diminished in left lower lobe and right lower lobe Breath sounds with wheezes in right upper lobe. Historical: - Allergies: Aspirin; Lorazepam; PENICILLINS; - Home Meds: 1. Acetaminophen Oral 2. Pulmicort Inhl 3. ceramides 1,3,6-11 top 4. cetirizine oral 5. Clonazepam Oral 6. finasteride oral 7. Fluocinolone Acetonide Topical 8. Flonase Nasal 9. duoneb 10. zaditor 11. Mag Citrate Oral 12. Metformin Oral 13. singulair 14. Mycostatin Oral 15. Prilosec Oral 16. Prednisone Oral 17. Zocor Oral 18. Flomax Oral 19. Kenalog top Topical - PMHx: Diabetes - IDDM; diabetic neuropathy; polymyalgia rheumatica; mylagia; - PSHx: Unable to obtain; - Tetanus: unknown. - Immunization history: Pneumococcal vaccine status is unknown. - Ebola Screening: : Unable to complete screening because patient does not understand, Patient negative for fever greater than or equal to 101.5 degrees Fahrenheit, and additional compatible Ebola Virus Disease symptoms. Patient denies exposure to infectious person. Patient denies travel to an Ebola-affected area in the 21 days before illness onset. No symptoms or risks identified at this time. . - Social history: Smoking status: Patient states was never smoker of tobacco. Patient/guardian denies using alcohol. Screenin:35 Infectious Disease Risk None. Abuse screen: Denies threats or abuse. Denies injuries sj from another. Nutritional screening: poor intake . Assessment: 19:35 See Triage Assessment done by same RN. Vital Signs: 18:30 BP 157 / 83 (auto/); Pulse 110; Resp 14; Temp 100.2(TE); Pulse Ox 96% on 2 lpm NC; sj Weight 55.34 kg; Height 5 ft. 8 in. (172.72 cm); Pain 3/10; 19:00 BP 124 / 88; Pulse 105; Resp 22; Pulse Ox 94% on 2 lpm NC; sj 19:30 BP 118 / 89; Pulse 103; Resp 25; Pulse Ox 93% on 2 lpm NC; sj 20:15 BP 140 / 78; Pulse 98 MON; Resp 21; Temp 101.2(TE); Pulse Ox 94% ; sj 21:00 BP 119 / 70; Pulse 96 MON; Resp 25; Pulse Ox 91% ; sj 21:30 BP 138 / 82; Pulse 98 MON; Resp 28; Pulse Ox 92% ; sj 18:30 Body Mass Index 18.55 (55.34 kg, 172.72 cm) ED Course: 18:21 Patient arrived in ED. cj 18:23 Kali Ware MD is Attending Physician. sc 18:25 Triage completed. sc1 18:35 Notified ED Physician of patient's arrival and chief complaint. Dr. Ware notified. sj 18:37 Debra Gleason is Primary Nurse. sj 18:50 First set of blood cultures drawn. sj 19:00 Second set of blood cultures drawn. sj 19:19 Attending Physician role handed off by Kali Ware MD tl1 19:19 Rc Santos MD is Attending Physician. tl1 19:36 Valuables Remains with patient Patient has correct armband on for positive sj identification. Placed in gown. Bed in low position. Call light in reach. Side rails up X2. patient services technician on. Pulse ox on. NIBP on. Warm blanket given. 20:45 Alicia De Los Santos MD is Admitting Physician. tl1 22:00 Urine collected. Unsuccessful attempt to straight cath; unable to get past prostate. Bladder scan showed 422ml. Before attempting coude cath, patient requested to stand and void with success. 02/09 12:58 CAT SCAN; ABDOMEN W/ABDOULAYE [id number] In Process Unspecified. EDMS Administered Medications: 02/08 18:24 CANCELLED (Other Intervention Used): NS 0.9% 2000 ml IV at bolus once sc 18:30 Drug: NS 0.9% 1000 ml; Route: IV; Rate: 250 ml/hr; Site: left antecubital; sj 20:18 Follow up: IV Status: Infusion continued; IV Intake: 1000ml sj 19:10 Drug: Tylenol 650 mg; Route: PO; sj 20:15 Drug: NS 0.9% 1000 ml; Route: IV; Rate: 500 ml/hr; Site: right antecubital; sj 22:23 Follow up: IV Status: Completed infusion; IV Intake: 1000ml sj 20:50 Drug: Insulin Regular Human 5 units; Route: IVP; Site: left antecubital; sj 21:21 Dru grams of (cefTRIAXone 1 grams, NS 0.9% 100 ml); Route: IVPB; Infused Over: 30 sj mins; Site: right antecubital; 22:23 Follow up: IV Status: Completed infusion; IV Intake: 120ml Point of Care Testing: Blood Glucose: 20:50 Blood Glucose: 369 mg/dL; mv Urine Dip: 22:00 pH: 6.0; ; Specific [place]: 1.015; Ketones: Negative; Glucose: Positive; Protein: sj Negative; Leukocytes: Negative; Nitrite: Negative ; Blood: Negative; Bilirubin: Negative ; Urobilinogen: Normal Ranges: Intake: 20:18 IV: 1000ml; Total: 1000ml. sj 22:23 IV: 1000ml; Total: 2000ml. sj 22:23 IV: 120ml; Total: 2120ml. sj Outcome: 20:45 Decision to Admit by Provider. tl1 22:24 Admitted to Med/surg accompanied by nurse, with oxygen. sj 22:24 Condition: improved 22:24 Instructed on need to admit 22:25 Patient left the ED. sj Signatures: Dispatcher [employer] Nathalie Kulkarni RN RN sc1 Kali Ware MD MD sc Logan Nelson Tom, MD MD tl1 arturo akbar Carissa cj Janzen, Sarah sj
[2017-02-08] MEDS: BUDESONIDE 0.5 MG/2 ML NEB INHALATION SCH (22:45)
[2017-02-08] MEDS: HYDROCORTISONE 100 MG/2 ML VIAL IV SCH (22:45)
[2017-02-08] MEDS: NORMAL SALINE 1,000 ML IV SCH (22:45)
[2017-02-08] MEDS: IPRATROPIUM/ALBUTEROL 0.5/3 MG 3 ML AMPUL.NEB INHALATION PRN (22:53)
[2017-02-08] MEDS: clonazePAM 0.5 MG TABLET PO PRN (23:14)
[2017-02-09 01:09] LABS: URINE APPEARANCE CLEAR; URINE COLOR YELLOW; URINE LEUKOCYTE ESTERASE NEGATIVE (NEGATIVE); URINE NITRITE NEGATIVE (NEGATIVE); URINE PROTEIN NEGATIVE (NEG - TRACE)
[2017-02-09 01:10] LABS: URINE BILIRUBIN NEGATIVE (NEGATIVE); URINE BLOOD TRACE (NEGATIVE); URINE GLUCOSE 500mg/dL (2+) (NEGATIVE); URINE KETONE NEGATIVE (NEGATIVE); URINE UROBILINOGEN 0.2mg/dL (Normal) (NEG-1mg/dL)
[2017-02-09] MEDS ORDERED: INSULIN LISPRO 100 UNIT/ML ML SUBCUT ONE (03:15)
[2017-02-09 05:41] LABS: BASOPHILS 0.1 % (0.0-2.0); EOSINOPHILS 0.1 % (0.0-6.0); HEMATOCRIT 35.8 % (42.0-54.0); HEMOGLOBIN 12.1 g/dL (14.0-18.0); LYMPHOCYTES# 0.5 X 10^3uL (0.8-3.8); MEAN CORPUS. HGB CONCENTRATION 33.8 g/dL (32.0-36.0); MEAN CORPUSCULAR HEMOGLOBIN 30.8 pg (29.0-35.0); MEAN PLATELET VOLUME 7.6 fL (7.4-10.4); MONOCYTES 0.6 % (2.0-10.0); MONOCYTES# 0.1 X 10^3uL (0.2-1.0); PLATELET COUNT 372 X 10^3uL (130-440); RED BLOOD COUNT 3.93 X 10^6uL (4.20-6.10); RED CELL DISTRIBUTION WIDTH 13.7 % (11.5-14.5); WHITE BLOOD COUNT 17.6 X 10^3uL (3.9-10.7)
[2017-02-09] MEDS: HYDROCORTISONE 100 MG/2 ML VIAL IV SCH (05:47)
[2017-02-09] MEDS: NORMAL SALINE 1,000 ML IV SCH (05:50)
[2017-02-09 05:57] LABS: BLOOD UREA NITROGEN 31 mg/dL (9-20); CALCIUM 8.8 mg/dL (8.4-10.2); CHLORIDE 110 mmol/L (98-107); CREATININE 1.7 mg/dL (0.7-1.3); POTASSIUM 4.1 mmol/L (3.5-5.1); SODIUM 142 mmol/L (137-145)
[2017-02-09 06:03] LABS: GLUCOSE 350 mg/dL (70-100)
--- NOTE | 2017-02-09 06:04 | RADIOLOGY REPORT ---
A limited single portable view of the chest is compared with prior film dated . The heart and vessels are stable and unremarkable. The lung caal remain hyperaerated but clear. No infiltrate, fluid or pneumothorax is seen. IMPRESSION: Stable hyperaeration of the lung caal. No acute cardiopulmonary abnormality is identified. MTDD
[2017-02-09] MEDS: INSULIN LISPRO 100 UNIT/ML ML SUBCUT SCH ×4 (06:35→21:52)
[2017-02-09 07:03] LABS: NEUTROPHILS 96.2 % (54.0-75.0)
--- NOTE | 2017-02-09 07:34 | HISTORY & PHYSICAL ---
DATE OF ADMISSION: 02/08/17 ATTENDING PHYSICIAN: Alicia De Los Santos MD HISTORY OF PRESENT ILLNESS: This patient was seen in clinic earlier today and was noted to have elevated blood sugars and some confusion and total body pain. His vital signs were good and he was sent home to restart his Metformin and his Prednisone. In spite of his chronic Prednisone use and diagnosis of polymyalgia rheumatica, he had apparently stopped his Prednisone. An acquaintance had stopped by the house this evening to make sure he was doing okay, and apparently found him quite confused and obviously not doing well. EMS evaluated him and brought him to the Emergency Room where he was found to be febrile with a fever over 102 degrees, a significant leukocytosis, tachycardic and confused. He is now being admitted for apparent sepsis, the source still being unclear. Laboratory data from the Emergency Room include CBC as described as white count of 25.3, hemoglobin of 13.9, hematocrit 40.8, neutrophils 87%. Chemistry is remarkable for a sodium of 135, normal potassium at 4.9, BUN quite elevated at 40, creatinine 2.1 but his baseline is around 1.7. His glucose was found to be 462 with normal LFTs and interestingly a lactic acid of only 1.1. Normal lipase and beta hydroxybutyrate. Urinalysis is pending and I am suspicious it will be positive for infection, but we will await the results. PAST MEDICAL HISTORY 1. Reactive airway disease. 2. Anxiety. 3. Benign prostatic hypertrophy. 4. Polymyalgia rheumatica. 5. Hyperlipidemia. 6. Type 2 diabetes recently off of his insulin and Metformin as his blood sugars were in the 80s last hospitalization. 7. Diverticulosis. 8. Gastroesophageal reflux disease. 9. History of kidney stone, apparently recently passed. PAST SURGICAL HISTORY 1. Cataract surgery 2003. 2. Sinus surgery 1991. 3. EGD November of this year. MEDICATIONS Pulmicort neb solution twice daily. Zyrtec 10 mg daily. Klonopin 0.5 mg at h.s. Proscar 5 mg p.o. daily. Flonase daily. Duonebs as needed. Mag citrate as needed. Metformin 500 mg p.o. b.i.d. Singular 10 mg p.o. daily. Prilosec 20 mg p.o. daily. Prednisone at 5 mg p.o. daily, restarted today. Simvastatin 10 mg p.o. at h.s. Flomax 0.4 mg p.o. daily. ALLERGIES: Aspirin, Lorazepam, Penicillin, although he has tolerated cephalosporins in the past. SOCIAL HISTORY: He has never been a smoker. He does not drink alcohol. He lost his a few years ago. He has concerned family members easily available by phone. FAMILY HISTORY: His mother and father both of cancer. PHYSICAL EXAMINATION VITAL SIGNS: Afebrile. His heart rate is down to 99. Blood pressure 145/90. GENERAL: He appears cachectic, frail in no acute distress. Mildly anxious. Seems to recognize me. HEENT: No adenopathy. CARDIAC: Regular rate and rhythm. No murmur noted. CHEST: Clear throughout, although I thought I heard decreased breath sounds on the right. Examination of the chest x-ray does not any significant findings at all other hyperinflated lung caal. ABDOMEN: Appears very slightly distended. He states that it is nontender to palpation. It is soft. I do not feel an enlarged bladder. EXTREMITIES: Thin. There is no skin breakdown. There is no edema. ASSESSMENT AND PLAN 1. Sepsis in a frail elderly man with a second hospitalization within the last month. The source of the sepsis remains to be seen. Blood cultures are pending. The chest x-ray does not appear suspicious. I am wondering if this is urosepsis , perhaps he has some urinary retention. He has received Rocephin and Azithromycin in the Emergency Room and this can be refined as we better understand the source of his infection. 2. Type 2 diabetes, recently he had extremely easy to control blood sugars, at present, they are widely out of control. This is probably related to his active infection. He has received a little IV insulin in the Emergency Room and he will be monitored with sliding scale insulin and q.6 hour glucose checks. 3. Polymyalgia rheumatica. He apparently has been off of his Prednisone for an unknown length of time and quite likely needs stress dosing of steroids which can be given IV initially, and may wreck havoc with his blood sugars. Will monitor the above closely. 4. Possible constipation. Patient was apparently reporting some issues with his bowels when he was in the clinic earlier toady. It does not appear that he is obstructed as his abdomen is nontender and soft, will monitor and make bowel program available. 5. DNR status. There is on file a do not resuscitate form signed within the last 2 years. 6. Disposition. Assisted living was discussed with family and patient at his last hospitalization, at it appears that he is having difficulty caring for himself appropriately, is forgetting meals, possibly having hypoglycemic episodes, certainly confused more than he used to be, and given to driving 100s of miles without telling anyone first. Discharge planning will be difficult and crucial. PAMELA
--- NOTE | 2017-02-09 08:34 | PROGRESS NOTE: IM APSO ---
Assessment and Plan - Date of Encounter Date of Encounter: 02/09/17 (1) Sepsis Status: Suspected Assessment and plan: He is clinically and laboratorily improved, with nice VS and improved leukocytosis. However, a source is entirely unclear. CXR fine, UA not suspicious , mouth doesn't seem the source, he notes some abdominal bloating in recent weeks but LFTs are normal and he is not obstructed or tender. Current Visit: Yes (2) Allergic rhinitis Status: Chronic Assessment and plan: No active issues. Current Visit: No (3) DM type 2 (diabetes mellitus, type 2) Status: Chronic Assessment and plan: Glc were fine last admit off meds, but have been very elevated at home recently. hard to say if he is in need of ongoing meds or glc were elevated d/t critical illness in the last few days. Will monitor with SSI, promote diet and cut down on stress dose steroids and monitor. May need swingbed status for complex changing needs. Current Visit: No (4) PMR (polymyalgia rheumatica) Status: Chronic Assessment and plan: He may have been off steroids since last admit, apparently refused C so difficult to say what he has been taking. I gave stress dose IV steroids on admit, will cut back and taper down now. He feels vastly improved in terms of total body pain and weakness. Current Visit: No (5) Abdominal bloating Status: Suspected Assessment and plan: He c/o bloating. His exam is minimally remarkable, but he does not seem obstructed. Interestingly, an UGI in 2014 showed a concerning looking fixed lesion involving stomach. He was scoped EGD as recently as November with Schatski's ring dilated and stomach looking normal. Had CT abd since then for f/ u renal stone, no abnl of stomach but no contrast used. Current Visit: Yes (6) Discharge planning issues Status: Suspected Assessment and plan: Perhaps swingbed status will permit us to stabilize meds/diabetes control/PMR control and further assess his future needs. He really should not be living independently, he is a very independent gentleman, preferring to drive long distances and skip meals when he wants. Current Visit: Yes - Time Spent With Patient Total time spent with greater than 50% in coordination of care (as documented) at patient's floor/unit and/or counseling patient: IM: PN Subjective General: fatigue, no pain HEENT: no headache Cardiovascular: no chest pain Respiratory: no cough, no wheeze, no SOB Gastrointestinal: bloating, no abdominal pain, no constipation Musculoskeletal: no swelling Integumentary: no rashes IM: PN Objective Exam - I&O/Vital Signs I&O: Intake & Output 02/08/17 02/09/17 02/09/17 21:59 05:59 13:59 Intake Total 1153 Balance 1153 Weight 55 kg Intake: IV 1153 Right Antecubital 1153 Other: Urine Appearance Clear Urine Color Yellow Voiding Method Toilet # Voids 2 Vital Signs: Last Vital Signs Temp 36.5 C 02/09/17 05:29 Pulse 78 02/09/17 05:29 Resp 16 02/09/17 05:29 BP 123/70 02/09/17 05:29 Pulse Ox 93 02/09/17 05:29 Oxygen Flow Rate 2 Oxygen Delivery Method Nasal Cannula - Constitutional General appearance: Present: thin - Eye Eye exam: Present: EOMI - ENT ENT exam: Present: mucous membranes dry, other (lots of dental work and less than ideal dental hygiene with placque, but no abscess or painful teeth.) - Neck Neck exam: Absent: lymphadenopathy - Respiratory Respiratory exam: Present: clear, stridor (mild inspiratory breathy-ness noted on prev admit) - Cardiovascular Cardiovascular exam: Present: RRR - GI/Abdominal GI/Abdominal exam: Present: normal bowel sounds, soft. Absent: mass, tenderness - Extremities Exam Extremities exam: Absent: edema - Neurological Exam Neurological exam: Present: oriented X3 - Psychiatric Psychiatric exam: Present: other (tearful about appropriate reminiscent topics, but seems oriented) - Skin Skin exam: Absent: rash - Lab Labs: Laboratory Last Values WBC 17.6 X 10^3uL (3.9-10.7) H 02/09/17 05:35 RBC 3.93 X 10^6uL (4.20-6.10) L 02/09/17 05:35 Hgb 12.1 g/dL (14.0-18.0) L 02/09/17 05:35 Hct 35.8 % (42.0-54.0) L 02/09/17 05:35 MCV 91.0 fL (80.0-100.0) 02/09/17 05:35 MCH 30.8 pg (29.0-35.0) 02/09/17 05:35 MCHC 33.8 g/dL (32.0-36.0) 02/09/17 05:35 RDW 13.7 % (11.5-14.5) 02/09/17 05:35 Plt Count 372 X 10^3uL (130-440) 02/09/17 05:35 MPV 7.6 fL (7.4-10.4) 02/09/17 05:35 Neutrophils % 96.2 % (54.0-75.0) H 02/09/17 05:35 Lymphocytes % 3.0 % (20.0-40.0) L 02/09/17 05:35 Eosinophils % 0.1 % (0.0-6.0) 02/09/17 05:35 Basophils % 0.1 % (0.0-2.0) 02/09/17 05:35 Neutrophils # 17.0 X 10^3uL (2.6-6.7) H 02/09/17 05:35 Lymphocytes # 0.5 X 10^3uL (0.8-3.8) L 02/09/17 05:35 Monocytes 0.6 % (2.0-10.0) L 02/09/17 05:35 Monocytes # 0.1 X 10^3uL (0.2-1.0) L 02/09/17 05:35 Eosinophils # 0.0 X 10^3uL (0.0-0.4) 02/09/17 05:35 Basophils # 0.0 X 10^3uL (0.0-0.1) 02/09/17 05:35 Sodium 142 mmol/L (137-145) D 02/09/17 05:35 Potassium 4.1 mmol/L (3.5-5.1) 02/09/17 05:35 Chloride 110 mmol/L (98-107) H 02/09/17 05:35 Carbon Dioxide 20 mmol/L (22-30) L 02/09/17 05:35 BUN 31 mg/dL (9-20) H 02/09/17 05:35 Creatinine 1.7 mg/dL (0.7-1.3) H 02/09/17 05:35 GFR Calculation Not Reportable 02/09/17 05:35 Glucose 350 mg/dL (70-100) H 02/09/17 05:35 Lactic Acid 1.1 mmol/L (0.7-2.1) 02/08/17 19:10 Calcium 8.8 mg/dL (8.4-10.2) 02/09/17 05:35 Total Bilirubin 0.8 mg/dL (0.2-1.3) 02/08/17 18:30 Direct Bilirubin 0.2 mg/dL (0.0-0.4) 02/08/17 18:30 AST 24 U/L (17-59) 02/08/17 18:30 ALT 52 U/L (21-72) 02/08/17 18:30 Alkaline Phosphatase 89 U/L (38-126) 02/08/17 18:30 Total Protein 7.4 g/dL (6.3-8.2) 02/08/17 18:30 Albumin 4.4 g/dL (3.5-5.0) 02/08/17 18:30 Lipase 103 U/L (23-300) 02/08/17 18:30 Beta-Hydroxybutyrate/Acetoacetate 0.27 mmol/L (<0.40) 02/08/17 18:30 Urine Color Yellow 02/08/17 22:00 Urine Appearance Clear 02/08/17 22:00 Urine pH 6.0 (5-7) 02/08/17 22:00 Ur Specific [place] 1.010 (0.001-1.035) 02/08/17 22:00 Urine Protein Negative (NEG - TRACE) 02/08/17 22:00 Urine Ketones Negative (NEGATIVE) 02/08/17 22:00 Urine Blood Trace (NEGATIVE) A 02/08/17 22:00 Urine Nitrate Negative (NEGATIVE) 02/08/17 22:00 Urine Bilirubin Negative (NEGATIVE) 02/08/17 22:00 Urine Urobilinogen 0.2mg/dl (normal) (NEG-1mg/dL) 02/08/17 22:00 Ur Leukocyte Esterase Negative (NEGATIVE) 02/08/17 22:00 Urine Glucose 500mg/dl (2+) (NEGATIVE) A 02/08/17 22:00 Quality Questions - VTE Prophylaxis Assessment VTE Present on Admission?: No Patient at risk for venous thromboembolism?: Yes VTE Risk Level: Moderate Risk Pharmaceutical VTE prophylaxis contraindication reason: not indicated Mechanical VTE prophylaxis contraindication reason: N/A- VTE prophylaxsis ordered (3) DM type 2 (diabetes mellitus, type 2) Qualifiers:
[2017-02-09] MEDS ORDERED: NORMAL SALINE 1,000 ML IV SCH (09:00)
[2017-02-09] MEDS ORDERED: PREDNISONE 10MG PO SCH (09:00)
[2017-02-09] MEDS ORDERED: predniSONE 1 MG TABLET PO SCH (10:00)
[2017-02-09] MEDS: IPRATROPIUM/ALBUTEROL 0.5/3 MG 3 ML AMPUL.NEB INHALATION PRN ×2 (10:26→19:10)
[2017-02-09] MEDS: BUDESONIDE 0.5 MG/2 ML NEB INHALATION SCH ×2 (10:27→21:52)
[2017-02-09] MEDS: FINASTERIDE 5 MG TABLET PO SCH (13:08)
[2017-02-09] MEDS ORDERED: predniSONE 10 MG TABLET PO SCH (13:15)
[2017-02-09] MEDS ORDERED: predniSONE 10 MG TABLET PO ONE (13:17)
--- NOTE | 2017-02-09 13:24 | CT REPORT ---
HISTORY: Left-sided upper quadrant pain, evaluate for gastric wall thickening. COMPARISON: 01/28/2017 TECHNIQUE: This examination was performed using automated exposure control, adjustment of mA or kV according to patient size, and/or use of iterative reconstruction technique. Axial images of the abdomen obtained from dome of the diaphragm through the iliac crest. FINDINGS: The visualized lung parenchyma and cardiac structures are unremarkable. There is no hepatic mass or intrahepatic biliary dilatation. The gallbladder is unremarkable, there is no cholelithiasis or pericholecystic fluid. The spleen is unremarkable. There is no pancreatic m ass or ductal dilatation. The adrenal glands are unremarkable. The stomach, small bowel, and large bowel are unremarkable. There is no free intraperitoneal fluid o r gas. There is no mesenteric edema or inflammatory process. Vascular structures of the abdomen and pelvis are unremarkable. No pathologic adenopathy is identified. There is no bone lesion. The right and left kidneys are unremarkable, there is no hydronephrosis or hydroureter. The stomach is incompletely distended, there is no focal evidence of thickening of the wall of the st omach with the limitation relating to incomplete distention. IMPRESSION: Unremarkable examination, there is no focal wall thickening of the stomach, there is limitation for e valuation of this clinical question as the stomach is not well distended, consider endoscopic evaluat ion if there is a high degree of clinical concern for gastric wall abnormality. Final Electronic Signature: This report was electronically signed by Tony Knox MD, FACR on 017 1:22 PM. [place] /
[2017-02-09] MEDS ORDERED: INSULIN GLARGINE,HUM.REC.ANLOG 100 UNITS/ML ML SUBCUT SCH (21:00)
[2017-02-09] MEDS: clonazePAM 0.5 MG TABLET PO PRN (21:51)
[2017-02-09] MEDS: TAMSULOSIN HCL 0.4 MG CAPSULE PO SCH (21:52)
[2017-02-09] MEDS: cefTRIAXone SODIUM 1,000 MG/10 ML VIAL IV SCH (21:53)
[2017-02-09] MEDS: MONTELUKAST SODIUM 10 MG TABLET PO SCH (21:53)
[2017-02-09] MEDS: AZITHROMYCIN 250 MG TABLET PO SCH (21:56)
[2017-02-09] MEDS ORDERED: NORMAL SALINE MINI-BAG+ 100 ML IV ONE (22:03)
[2017-02-10] MEDS: IPRATROPIUM/ALBUTEROL 0.5/3 MG 3 ML AMPUL.NEB INHALATION PRN (05:58)
[2017-02-10] MEDS: INSULIN LISPRO 100 UNIT/ML ML SUBCUT SCH ×4 (07:56→21:22)
[2017-02-10] MEDS: BUDESONIDE 0.5 MG/2 ML NEB INHALATION SCH ×2 (08:46→21:24)
--- NOTE | 2017-02-10 08:52 | PROGRESS NOTE: IM APSO ---
Assessment and Plan - Date of Encounter Date of Encounter: 02/10/17 (1) Diabetes mellitus type 2 with neurological manifestations Status: Acute Assessment and plan: exacerbated by acute illness and higher steroid dosing. Gradually improving. Will continue sliding scale and increase his evening Lantus from 5 units up to 6 units nightly. Current Visit: Yes (2) PMR (polymyalgia rheumatica) Status: Chronic Assessment and plan: he has had this at least for 6 years, according to the patient. He states that he has continued to take his 5 mg prednisone daily, but seemed confused regarding his medications. He stated that he stopped one of his medications this past week cold turkey, but he is uncertain which one. Current Visit: Yes (3) Abdominal bloating Status: Suspected Assessment and plan: He has some chronic intermittent abdominal bloating with meals of uncertain etiology. Within the last several months he has had an EGD. His CT of the abdomen yesterday failed to identify any etiology. He has not had a colonoscopy , because of his age and chronic steroid use. His weight has been stable for one year. His H. pylori antibody test was positive in 2014, but presumably he has had treatment for that. most likely he has a food intolerance. This can be further worked up by his PCP as an outpatient (Dr. Matt). Current Visit: Yes (4) Sepsis Status: Suspected Assessment and plan: Likely his acute mental status changes were triggered by sepsis of uncertain source. His blood cultures have been negative, though. The other possibility, though, is that he had acute adrenal insufficiency related to poor compliance with his prednisone. I would like to give him 1 more day Rocephin and azithromycin. I am repeating his CBC today. Current Visit: Yes (5) Adrenal insufficiency Status: Acute Assessment and plan: At the least, he had some relative adrenal insufficiency related to his acute illness exacerbated by possible poor compliance with his prednisone. He is doing well now, initially on IV steroid, and now on prednisone. I will decrease his daily dose from 20 mg down to 15 mg. Current Visit: Yes (6) Discharge planning issues Status: Suspected Assessment and plan: I spoke with him about advanced directives today. He states that his son, Radha in [place], is closest to him and is his medical power of ip attorney. He states that he has this documented at home. he did not see any need to bother either of his sons now, since he feels that he is doing fine. I explained that his 2 admissions in the recent past are cause for concern. I suggested possibly moving from independent living to assisted living at [facility] > > He is very opposed to this. I will look forward to impart from our manufacturing planner. One option may be to send him back to independent living but with help from home health care, at least in organizing his medications weekly. I will discuss these issues with his PCP today. Current Visit: Yes - Time Spent With Patient Total time spent with greater than 50% in coordination of care (as documented) at patient's floor/unit and/or counseling patient: IM: PN Subjective General: confusion (slight. He denies confusion but is confused about meds.), good appetite, no fatigue, no malaise, no pain, no fever, no chills HEENT: no headache Cardiovascular: no chest pain Respiratory: no cough, no wheeze, no SOB Gastrointestinal: bloating, no abdominal pain, no constipation Musculoskeletal: no swelling Integumentary: no rashes IM: PN Objective Exam - I&O/Vital Signs I&O: Intake & Output 02/09/17 02/10/17 02/10/17 21:59 05:59 13:59 Intake Total 430 1745 Balance 430 1745 Weight 58 kg Intake: IV 1745 Right Antecubital 1745 Oral 430 Other: Urine Appearance Clear Urine Color Yellow Stool Size Small Stool Characteristics Liquid Brown Voiding Method Toilet # Voids 3 2 # Bowel Movements 2 1 Vital Signs: Last Vital Signs Temp 36.3 C L 02/10/17 06:34 Pulse 91 H 02/10/17 06:34 Resp 24 02/10/17 06:34 BP 122/68 02/10/17 06:34 Pulse Ox 97 02/10/17 06:34 Oxygen Flow Rate 2 Oxygen Delivery Method Nasal Cannula - Constitutional General appearance: Present: average body habitus. Absent: acute distress - ENT ENT exam: Present: mucous membranes moist, other (lots of dental work and less than ideal dental hygiene with placque, but no abscess or painful teeth.) - Neck Neck exam: Absent: lymphadenopathy - Respiratory Respiratory exam: Present: clear. Absent: stridor - Cardiovascular Cardiovascular exam: Present: RRR. Absent: systolic murmur - GI/Abdominal GI/Abdominal exam: Present: distended (mildly), normal bowel sounds, soft. Absent: mass, tenderness - Extremities Exam Extremities exam: Absent: edema - Neurological Exam Neurological exam: Present: oriented X3 (but confused about meds.) - Psychiatric Psychiatric exam: Present: other (tearful about appropriate reminiscent topics, but seems oriented) - Skin Skin exam: Absent: rash - Allied Health Notes Allied health notes reviewed: case management, nursing - Lab Labs: Laboratory Last Values WBC 17.6 X 10^3uL (3.9-10.7) H 02/09/17 05:35 RBC 3.93 X 10^6uL (4.20-6.10) L 02/09/17 05:35 Hgb 12.1 g/dL (14.0-18.0) L 02/09/17 05:35 Hct 35.8 % (42.0-54.0) L 02/09/17 05:35 MCV 91.0 fL (80.0-100.0) 02/09/17 05:35 MCH 30.8 pg (29.0-35.0) 02/09/17 05:35 MCHC 33.8 g/dL (32.0-36.0) 02/09/17 05:35 RDW 13.7 % (11.5-14.5) 02/09/17 05:35 Plt Count 372 X 10^3uL (130-440) 02/09/17 05:35 MPV 7.6 fL (7.4-10.4) 02/09/17 05:35 Neutrophils % 96.2 % (54.0-75.0) H 02/09/17 05:35 Lymphocytes % 3.0 % (20.0-40.0) L 02/09/17 05:35 Eosinophils % 0.1 % (0.0-6.0) 02/09/17 05:35 Basophils % 0.1 % (0.0-2.0) 02/09/17 05:35 Neutrophils # 17.0 X 10^3uL (2.6-6.7) H 02/09/17 05:35 Lymphocytes # 0.5 X 10^3uL (0.8-3.8) L 02/09/17 05:35 Monocytes 0.6 % (2.0-10.0) L 02/09/17 05:35 Monocytes # 0.1 X 10^3uL (0.2-1.0) L 02/09/17 05:35 Eosinophils # 0.0 X 10^3uL (0.0-0.4) 02/09/17 05:35 Basophils # 0.0 X 10^3uL (0.0-0.1) 02/09/17 05:35 Sodium 142 mmol/L (137-145) D 02/09/17 05:35 Potassium 4.1 mmol/L (3.5-5.1) 02/09/17 05:35 Chloride 110 mmol/L (98-107) H 02/09/17 05:35 Carbon Dioxide 20 mmol/L (22-30) L 02/09/17 05:35 BUN 31 mg/dL (9-20) H 02/09/17 05:35 Creatinine 1.7 mg/dL (0.7-1.3) H 02/09/17 05:35 GFR Calculation Not Reportable 02/09/17 05:35 Glucose 350 mg/dL (70-100) H 02/09/17 05:35 Lactic Acid 1.1 mmol/L (0.7-2.1) 02/08/17 19:10 Calcium 8.8 mg/dL (8.4-10.2) 02/09/17 05:35 Total Bilirubin 0.8 mg/dL (0.2-1.3) 02/08/17 18:30 Direct Bilirubin 0.2 mg/dL (0.0-0.4) 02/08/17 18:30 AST 24 U/L (17-59) 02/08/17 18:30 ALT 52 U/L (21-72) 02/08/17 18:30 Alkaline Phosphatase 89 U/L (38-126) 02/08/17 18:30 Total Protein 7.4 g/dL (6.3-8.2) 02/08/17 18:30 Albumin 4.4 g/dL (3.5-5.0) 02/08/17 18:30 Lipase 103 U/L (23-300) 02/08/17 18:30 Beta-Hydroxybutyrate/Acetoacetate 0.27 mmol/L (<0.40) 02/08/17 18:30 Urine Color Yellow 02/08/17 22:00 Urine Appearance Clear 02/08/17 22:00 Urine pH 6.0 (5-7) 02/08/17 22:[address] [place] 1.010 (0.001-1.035) 02/08/17 22:00 Urine Protein Negative (NEG - TRACE) 02/08/17 22:00 Urine Ketones Negative (NEGATIVE) 02/08/17 22:00 Urine Blood Trace (NEGATIVE) A 02/08/17 22:00 Urine Nitrate Negative (NEGATIVE) 02/08/17 22:00 Urine Bilirubin Negative (NEGATIVE) 02/08/17 22:00 Urine Urobilinogen 0.2mg/dl (normal) (NEG-1mg/dL) 02/08/17 22:00 Ur Leukocyte Esterase Negative (NEGATIVE) 02/08/17 22:00 Urine Glucose 500mg/dl (2+) (NEGATIVE) A 02/08/17 22:00
[2017-02-10] MEDS: FINASTERIDE 5 MG TABLET PO SCH (09:19)
[2017-02-10] MEDS: predniSONE 10 MG TABLET PO SCH (09:19)
[2017-02-10] MEDS: AZITHROMYCIN 250 MG TABLET PO SCH (09:19)
[2017-02-10] MEDS: TRIAMCINOLONE 0.1% TOPICAL SCH ×2 (09:20→21:24)
[2017-02-10 09:34] LABS: BASOPHILS 0.1 % (0.0-2.0); EOSINOPHILS 0.1 % (0.0-6.0); HEMATOCRIT 30.5 % (42.0-54.0); HEMOGLOBIN 10.5 g/dL (14.0-18.0); LYMPHOCYTES# 1.5 X 10^3uL (0.8-3.8); MEAN CELL VOLUME 91.4 fL (80.0-100.0); MEAN CORPUS. HGB CONCENTRATION 34.4 g/dL (32.0-36.0); MEAN CORPUSCULAR HEMOGLOBIN 31.5 pg (29.0-35.0); MEAN PLATELET VOLUME 7.7 fL (7.4-10.4); MONOCYTES 5.7 % (2.0-10.0); MONOCYTES# 0.9 X 10^3uL (0.2-1.0); NEUTROPHILS 84.1 % (54.0-75.0); PLATELET COUNT 367 X 10^3uL (130-440); RED BLOOD COUNT 3.34 X 10^6uL (4.20-6.10); RED CELL DISTRIBUTION WIDTH 13.8 % (11.5-14.5); WHITE BLOOD COUNT 15.4 X 10^3uL (3.9-10.7)
[2017-02-10 09:56] LABS: ERYTHROCYTE SEDIMENTATION RATE 26 MM/HR (0-10)
[2017-02-10 10:08] LABS: BLOOD UREA NITROGEN 30 mg/dL (9-20); CALCIUM 8.8 mg/dL (8.4-10.2); CHLORIDE 110 mmol/L (98-107); CREATININE 1.5 mg/dL (0.7-1.3); POTASSIUM 3.2 mmol/L (3.5-5.1); SODIUM 144 mmol/L (137-145)
[2017-02-10 10:11] LABS: GLUCOSE 302 mg/dL (70-100)
[2017-02-10] MEDS ORDERED: POTASSIUM CHLORIDE ER 10 MEQ TABLET PO SCH (14:00)
[2017-02-10] MEDS ORDERED: SIMVASTATIN 20 MG TABLET PO SCH (21:00)
[2017-02-10] MEDS ORDERED: INSULIN GLARGINE,HUM.REC.ANLOG 100 UNITS/ML ML SUBCUT SCH (21:00)
[2017-02-10] MEDS: TAMSULOSIN HCL 0.4 MG CAPSULE PO SCH (21:22)
[2017-02-10] MEDS ORDERED: NORMAL SALINE ADDVANTAGE 100 ML IV ONE (21:23)
[2017-02-10] MEDS: MONTELUKAST SODIUM 10 MG TABLET PO SCH (21:24)
[2017-02-10] MEDS ORDERED: NORMAL SALINE MINI-BAG+ 100 ML IV ONE (21:24)
[2017-02-10] MEDS: cefTRIAXone SODIUM 1,000 MG/10 ML VIAL IV SCH (21:35)
[2017-02-11] MEDS ORDERED: TRIAMCINOLONE 0.1% TOPICAL SCH
[2017-02-11 06:11] LABS: BASOPHILS 0.3 % (0.0-2.0); EOSINOPHILS 0.7 % (0.0-6.0); EOSINOPHILS# 0.1 X 10^3uL (0.0-0.4); HEMATOCRIT 32.4 % (42.0-54.0); HEMOGLOBIN 10.9 g/dL (14.0-18.0); LYMPHOCYTES 21.6 % (20.0-40.0); LYMPHOCYTES# 2.1 X 10^3uL (0.8-3.8); MEAN CELL VOLUME 91.4 fL (80.0-100.0); MEAN CORPUS. HGB CONCENTRATION 33.6 g/dL (32.0-36.0); MEAN CORPUSCULAR HEMOGLOBIN 30.7 pg (29.0-35.0); MEAN PLATELET VOLUME 7.8 fL (7.4-10.4); MONOCYTES 7.4 % (2.0-10.0); MONOCYTES# 0.7 X 10^3uL (0.2-1.0); PLATELET COUNT 372 X 10^3uL (130-440); RED BLOOD COUNT 3.55 X 10^6uL (4.20-6.10); RED CELL DISTRIBUTION WIDTH 13.6 % (11.5-14.5); WHITE BLOOD COUNT 9.9 X 10^3uL (3.9-10.7)
[2017-02-11 06:22] LABS: BLOOD UREA NITROGEN 29 mg/dL (9-20); CALCIUM 8.9 mg/dL (8.4-10.2); CHLORIDE 112 mmol/L (98-107); CREATININE 1.4 mg/dL (0.7-1.3); GLUCOSE 176 mg/dL (70-100); POTASSIUM 3.9 mmol/L (3.5-5.1); SODIUM 143 mmol/L (137-145)
[2017-02-11 06:40] VITALS: BP 161/90; PULSE 68; RESP 18; TEMP 97.6
[2017-02-11 06:53] LABS: ERYTHROCYTE SEDIMENTATION RATE 24 MM/HR (0-10)
[2017-02-11] MEDS: IPRATROPIUM/ALBUTEROL 0.5/3 MG 3 ML AMPUL.NEB INHALATION PRN (07:34)
[2017-02-11] MEDS: INSULIN LISPRO 100 UNIT/ML ML SUBCUT SCH (07:42)
[2017-02-11] MEDS ORDERED: O2 HUMIDIFIER 650 ML BOTTLE INHALATION ONE (07:48)
[2017-02-11 07:55] VITALS: O2SAT 91
--- NOTE | 2017-02-11 08:06 | DC SUMMARY: IM Note ---
Discharge Summary: IM/Peds Provider: Date of Admission: 02/08/17 Admitting Provider: APOLINAR CARDOSO MD Attending Provider: AYAH MOORE DO Discharging Provider: APOLINAR CARDOSO MD Primary Care Provider: Discharge Date: 02/11/17 - Diagnosis (1) Sepsis Status: Suspected (2) Allergic rhinitis Status: Chronic (3) DM type 2 (diabetes mellitus, type 2) Status: Chronic Qualifiers: (4) PMR (polymyalgia rheumatica) Status: Chronic (5) Abdominal bloating Status: Suspected (6) Discharge planning issues Status: Suspected Hospital Course: Sepsis of unknown source, neg studies, has resolved, will d/c on Ceftin as that is probably the class of medication resulting in improvement. Some of this was adrenal crisis due to being off prednisone; he is back on regular dosing. He will see his PCP soon. His RAD was not an issue this admit. His diabetes responded as one might expect to stress doses of steroids, and seems more manageable. He is back on some HS insulin, and will discuss metformin with PCP; at his age may or may not have a role. - Time Spent with Patient Total time spent providing and/or coordinating discharge services: Discharge - Patient/Caregiver Discharge Instructions Activity Level: As is comfortable! Diet: regular meals, each one with some protein! Follow up: AYAH MOORE DO [Primary Care Provider] - 02/17/17 2:00 pm Home Medications: Cefuroxime Axetil [Ceftin] 500 mg PO BID #14 tab Disposition: HOME, SELF-CARE Discharge Summary Data - Medication History Medication History: Home Medications Ketotifen Fumarate [Zaditor] 1 drop EACHEYE BID PRN 07/17/16 Omeprazole 20 mg PO BEFORE BRKFST/DINN 07/17/16 Triamcinolone 0.1% Cream [Triamcinolone 0.1% Cream*] 1 moo TOPICAL BID PRN 07/17 predniSONE [Deltasone*] 5 mg PO DAILY 01/30/17 Acetaminophen [Tylenol*] 650 mg PO Q6H PRN #0 tablet 02/11/17 Budesonide [Pulmicort Neb*] 0.5 mg INHALATION BID neb 02/11/17 Cefuroxime Axetil [Ceftin] 500 mg PO BID #14 tab 02/11/17 Cetirizine HCl [Cetirizine HCl] 10 mg PO DAILY PRN 02/11/17 Finasteride [Finasteride*] 5 mg PO DAILY tablet 02/11/17 Fluticasone Nasal [Flonase Nasal [place]*] 1 spray NASAL DAILY PRN #0 btl Insulin Glargine,Hum.rec.anlog [Lantus*] 6 units SUBCUT HS ml 02/11/17 Ipratropium/Albuterol 0.5/3 mg [Duoneb 2.5-0.5 mg/3 ml Soln*] 3 ml INHALATION Q4H PRN #0 ampul.neb 02/11/17 Magnesium Hydroxide [Milk of Magnesia*] 30 ml PO DAILY PRN #0 udc 02/11/17 Montelukast Sodium [Singular*] 10 mg PO HS tablet 02/11/17 Simvastatin [Simvastatin*] 10 mg PO HS tablet 02/11/17 Tamsulosin HCl [Flomax*] 0.8 mg PO HS cap 02/11/17 Triamcinolone 0.1% Cream [Triamcinolone 0.1% Cream*] 1 moo TOPICAL BID tube 02/23 clonazePAM [Klonopin*] 0.5 mg PO HS PRN #0 tablet 02/11/17 Inpatient Medications 02/08/17 22:05 Acetaminophen [Tylenol] 650 mg PO Q6H PRN Cetirizine HCl [Cetirizine HCl] 10 mg PO DAILY PRN Fluticasone Nasal [Flonase Nasal [place]] 1 spray NASAL DAILY PRN Ipratropium/Albuterol 0.5/3 mg [Duoneb 2.5-0.5 mg/3 ml Soln] 3 ml INHALATION Q4H PRN Magnesium Hydroxide [Milk of Magnesia] 30 ml PO DAILY PRN clonazePAM [KlonoPIN] 0.5 mg PO HS PRN 02/08/17 22:15 Budesonide [Pulmicort Neb] 0.5 mg INHALATION BID 02/09/17 09:00 Finasteride [Proscar] 5 mg PO DAILY 02/09/17 21:00 Montelukast Sodium [Singular] 10 mg PO HS Tamsulosin HCl [Flomax] 0.8 mg PO HS 02/10/17 09:00 Triamcinolone 0.1% Cream 1 moo TOPICAL BID predniSONE [Deltasone] 15 mg PO DAILY 02/10/17 21:00 Insulin Glargine,Hum.rec.anlog [Lantus] 6 units SUBCUT HS Simvastatin [Zocor] 10 mg PO HS Procedures and tests throughout hospitalization: Completed Lab Orders 02/08/17 22:00 UA W/O MICRO - OTIS, CUL IF IND [URINE] Routine 02/10/17 09:15 BASIC METABOLIC PANEL [CHEM] Stat C-REACTIVE PROTEIN [CHEM] Stat CBC AUTO DIF, MDIF/RMOR IF IND [HEM] Stat ESR [ERYTHROCYTE SEDIMENTATION RATE] [HEM] Stat 02/11/17 05:48 BASIC METABOLIC PANEL [CHEM] Stat CBC AUTO DIF, MDIF/RMOR IF IND [HEM] AMDRAW ERYTHROCYTE SEDIMENTATION RATE [HEM] Stat Completed Imaging Orders 02/09/17 11:00 CAT SCAN; ABDOMEN W/ABDOULAYE [id number] [CT] Stat Completed Microbiology Orders 02/09/17 14:39 C DIFFICILE BY PCR [RM] Routine Pending Orders 02/08/17 22:05 Acetaminophen [Tylenol] 650 mg PO Q6H PRN Cetirizine HCl [Cetirizine HCl] 10 mg PO DAILY PRN Fluticasone Nasal [Flonase Nasal [place]] 1 spray NASAL DAILY PRN Ipratropium/Albuterol 0.5/3 mg [Duoneb 2.5-0.5 mg/3 ml Soln] 3 ml INHALATION Q4H PRN Magnesium Hydroxide [Milk of Magnesia] 30 ml PO DAILY PRN clonazePAM [KlonoPIN] 0.5 mg PO HS PRN 02/08/17 22:15 Budesonide [Pulmicort Neb] 0.5 mg INHALATION BID 02/09/17 08:58 Activity: Ambulate with Assist TID Sequential Compression Device IN BED OR CHAIR JOSE Hose . 02/09/17 09:00 Finger Stick Blood Sugar ACHS FINGER STICK Finasteride [Proscar] 5 mg PO DAILY 02/09/17 14:39 STOOL CULTURE PANEL [RM] Routine 02/09/17 21:00 Montelukast Sodium [Singular] 10 mg PO HS Tamsulosin HCl [Flomax] 0.8 mg PO HS 02/09/17 Breakfast Diabetic [DIET] 02/10/17 09:00 Triamcinolone 0.1% Cream 1 moo TOPICAL BID predniSONE [Deltasone] 15 mg PO DAILY 02/10/17 21:00 Insulin Glargine,Hum.rec.anlog [Lantus] 6 units SUBCUT HS Simvastatin [Zocor] 10 mg PO HS 02/11/17 12:00 Discharge ONCE Labs on day of discharge: Labs from last 24 hours 02/11/17 02/10/17 05:48 09:15 WBC 9.9 15.4 H RBC 3.55 L 3.34 L Hgb 10.9 L 10.5 L Hct 32.4 L 30.5 L MCV 91.4 91.4 MCH 30.7 31.5 MCHC 33.6 34.4 RDW 13.6 13.8 Plt Count 372 367 MPV 7.8 7.7 Neutrophils % 70.0 84.1 H Lymphocytes % 21.6 10.0 L Eosinophils % 0.7 0.1 Basophils % 0.3 0.1 Neutrophils # 7.0 H 13.0 H Lymphocytes # 2.1 1.5 Monocytes 7.4 5.7 Monocytes # 0.7 0.9 Eosinophils # 0.1 0.0 Basophils # 0.0 0.0 ESR 24 H 26 H Sodium 143 144 Potassium 3.9 D 3.2 L D Chloride 112 H 110 H Carbon Dioxide 21 L 19 L BUN 29 H 30 H Creatinine 1.4 H 1.5 H GFR Calculation Not Reportable Not Reportable Glucose 176 H 302 H Calcium 8.9 8.8 C-Reactive Protein 48.0 H Preliminary micro results at discharge 02/09/17 14:39 Stool Culture - Preliminary Stool IM: Discharge Physical Exam - I&O/Vital Signs I&O: Intake & Output 02/10/17 02/11/17 02/11/17 21:59 05:59 13:59 Intake Total 1100 100 Balance 1100 100 Weight 58.5 kg Intake: Oral 1100 100 Other: Urine Appearance Clear Urine Color Yellow Voiding Method Urinal Toilet # Voids 4 2 # Bowel Movements 0 Vital Signs: Last Vital Signs Temp 36.4 C 02/11/17 06:39 Pulse 68 02/11/17 06:39 Resp 18 02/11/17 06:39 BP 161/90 02/11/17 06:39 Pulse Ox 91 02/11/17 07:55 Oxygen Flow Rate 2 Oxygen Delivery Method Room Air - Constitutional General appearance: Present: average body habitus. Absent: acute distress - Eye Eye exam: Present: EOMI - ENT ENT exam: Present: mucous membranes moist, other (lots of dental work and less than ideal dental hygiene with placque, but no abscess or painful teeth.) - Neck Neck exam: Absent: lymphadenopathy - Respiratory Respiratory exam: Present: clear. Absent: stridor - Cardiovascular Cardiovascular exam: Present: RRR. Absent: systolic murmur - GI/Abdominal GI/Abdominal exam: Present: distended (mildly), normal bowel sounds, soft. Absent: mass, tenderness - Extremities Exam Extremities exam: Absent: edema - Neurological Exam Neurological exam: Present: oriented X3 (but confused about meds.) - Psychiatric Psychiatric exam: Present: other (tearful about appropriate reminiscent topics, but seems oriented) - Skin Skin exam: Absent: rash - Allied Health Notes Allied health notes reviewed: case management, nursing
[2017-02-11] MEDS ORDERED: FEXOFENADINE HCL 180 MG TABLET PO PRN (08:21)
[2017-02-11] MEDS: TRIAMCINOLONE 0.1% TOPICAL SCH (08:22)
[2017-02-11] MEDS: BUDESONIDE 0.5 MG/2 ML NEB INHALATION SCH (08:22)
[2017-02-11] MEDS: predniSONE 10 MG TABLET PO SCH (08:22)
[2017-02-11] MEDS: AZITHROMYCIN 250 MG TABLET PO SCH (08:22)
[2017-02-11] MEDS: FINASTERIDE 5 MG TABLET PO SCH (08:22)
[2017-02-11] MEDS ORDERED: cefTRIAXone SODIUM 1,000 MG in NORMAL SALINE MINI-BAG+ 100 ML IV SCH (22:00)
== END 2017-02-11 09:47 | disposition home or self-care (01) | DRG 645 ==
LOC: ER 18:20 → IN 22:00
PROVIDERS: ADMIT Family Medicine; ATTEND Family Medicine
DX: E27.3 Drug-induced adrenocortical insufficiency (principal); E11.42 Type 2 diabetes mellitus with diabetic polyneuropathy; E11.65 Type 2 diabetes mellitus with hyperglycemia; M35.3 Polymyalgia rheumatica; Z79.4 Long term (current) use of insulin; J30.9 Allergic rhinitis, unspecified; J45.909 Unspecified asthma, uncomplicated; E78.5 Hyperlipidemia, unspecified; K57.90 Diverticulosis of intestine, part unspecified, without perforation or abscess without bleeding; K21.9 Gastro-esophageal reflux disease without esophagitis; N40.0 Benign prostatic hyperplasia without lower urinary tract symptoms; F41.9 Anxiety disorder, unspecified; Z79.899 Other long term (current) drug therapy
CPT/HCPCS: 36415; 71010; 74150; 80048; 80076; 81003; 82010; 83605; 83690; 85025; 85651; 86140; 87040; 87070; 87188; 87205; 87493; 87899; 94640; 94664; 96361; 96365; 96375; 99285; A0425; A0427; E0555; J0456; J0696; J1815; J7030; J7050; J7512; J7620; Q0144